=== PATIENT | male | born 1935 | race Caucasian/White ===

== ENCOUNTER 2017-08-09 13:12 | Inpatient (IN) | payer MEDICARE ==
[2017-08-09] MEDS ORDERED: ACETAMINOPHEN 325 MG TABLET PO ONE (13:15)
--- NOTE | 2017-08-09 13:49 | RADIOLOGY REPORT (SQ) ---
EXAM DESCRIPTION: HIP LEFT AP/LATERAL COMPLETED DATE/TIME: 08/09/2017 1:36 pm REASON FOR STUDY: fall COMPARISON: None. NUMBER OF VIEWS: Two views. TECHNIQUE: AP pelvis and additional frog-leg view of the left hip. LIMITATIONS: None. FINDINGS: MINERALIZATION: Normal. LEFT HIP: There is an intertrochanteric fracture of the proximal left femur. RIGHT HIP: No fracture or dislocation. No worrisome bone lesions. PUBIS AND ISCHIUM: No fracture. PELVIS: No fracture. SACRUM: No fracture or dislocation. No worrisome bone lesions. LOWER LUMBAR SPINE: No fracture or dislocation. No worrisome bone lesions. No significant disc disea se. SOFT TISSUES: No findings. OTHER: No other significant finding. IMPRESSION: Intertrochanteric fracture of the proximal left femur. No other evidence for fracture i s seen. TECHNICAL DOCUMENTATION: JOB ID: [id number] [employer]- All Rights Reserved Reading location - IP/workstation name: [email or web address]
--- NOTE | 2017-08-09 14:41 | ER Document Report ---
ED Hip Pain/Injury - General Chief Complaint: Hip Injury Stated Complaint: FALL/LEFT HIP PAIN Time Seen by Provider: 08/09/17 14:25 Notes: Patient slipped and fell and injured his left hip today. He was wearing socks but no shoes and was not using his walker that he has to assist with walking and he slipped on a linoleum floor. Also hit his head, but no loss of consciousness or neurologic deficits. Denies any neck pain. No chest or rib pain. No shortness of breath. No abdominal pain. Denies nausea or vomiting. Denies diarrhea. Denies any recent illness or fever or chills. TRAVEL OUTSIDE OF THE [place] IN LAST 30 DAYS: No - Related Data Allergies/Adverse Reactions: No Known Allergies Allergy (Verified 10/01/14 00:36) Past Medical History - Social History Smoking Status: Unknown if Ever Smoked Chew tobacco use (# tins/day): No Frequency of alcohol use: None Drug Abuse: None Family History: Reviewed & Not Pertinent, CAD, DM, Hypertension, Malignancy Patient has suicidal ideation: No Patient has homicidal ideation: No - Past Medical History Cardiac Medical History: Reports: Hx Atrial Fibrillation - heart irregularity but not sure if actual A. fib, Hx Coronary Artery Disease, Hx Hypercholesterolemia, Hx Hypertension Denies: Hx Heart Attack Pulmonary Medical History: Denies: Hx Asthma Neurological Medical History: Reports: Hx Cerebrovascular Accident - 20 YEARS AGO,[employer]OT[employer]. Denies: Hx Seizures Endocrine Medical History: Reports: Hx Diabetes Mellitus Type 1, Hx Diabetes Mellitus Type 2 Renal/ Medical History: Reports: Hx Benign Prostatic Hyperplasia, Hx Renal Insufficiency Musculoskeltal Medical History: Reports Hx Arthritis Past Surgical History: Reports: Hx Carotid Endarterectomy, Hx Tonsillectomy, Hx Vascular Surgery - carotid artery. Denies: Hx Open Heart Surgery, Hx Pacemaker - Immunizations Immunizations up to date: Yes Hx Diphtheria, Pertussis, Tetanus Vaccination: Yes Hx Pneumococcal Vaccination: 05/31/12 Review of Systems - Review of Systems Notes: REVIEW OF SYSTEMS: CONSTITUTIONAL : Denies fever. EENT: Denies eye, ear, nose or mouth or throat pain or other symptoms. CARDIOVASCULAR: Denies chest pain. RESPIRATORY: Denies cough, chest congestion, or shortness of breath. GASTROINTESTINAL: Denies abdominal pain or nausea, vomiting, or diarrhea. GENITOURINARY: Denies difficulty or painful urinating, urinary frequency, blood in urine. MUSCULOSKELETAL: Denies back or neck pain. Pain in left hip. Declines pain medications. SKIN: Denies rash or skin lesions. NEUROLOGICAL: Denies LOC or altered mental status. Denies headache. Denies sensory loss or motor deficits. ALL OTHER SYSTEMS REVIEWED AND NEGATIVE. Physical Exam - Vital signs Vitals: Temp Pulse Resp BP Pulse Ox 97.7 F 83 20 178/98 H 96 08/09/17 13:49 08/09/17 13:49 08/09/17 13:49 08/09/17 13:49 08/09/17 13:49 Interpretation: Hypertensive - Mild - Notes Notes: PHYSICAL EXAMINATION: GENERAL: Well-appearing, in no acute distress. Vital signs normal except for slight elevation of blood pressure. HEAD: Atraumatic, normocephalic. No hematomas noted. EYES: Pupils equal round and reactive to light, extraocular movements intact. ENT: oropharynx clear without exudates. Moist mucous membranes. NECK: Normal range of motion, supple. LUNGS: Breath sounds clear and equal bilaterally. HEART: Regular rate and rhythm without murmurs. ABDOMEN: Soft, nontender. No guarding or rebound. No masses. BACK: No tenderness throughout entire back. EXTREMITIES: Pain in left hip and does not tolerate movement of that area. NEUROLOGICAL: Normal speech, normal gait. Normal sensory, motor, and reflex exams. Awake, alert, and oriented x3. Cranial nerves normal. PSYCH: Normal mood, normal affect. SKIN: Warm, dry, no rashes. Course - Re-evaluation Re-evalutation: 08/09/17 15:57 X-ray shows an intertrochanteric fracture of the left hip. I have contacted hospitalist testing consultant who will admit the patient. I have contacted the orthopedist testing consultant, Dr. Terrell, who will be consulting on the patient. EKG with normal sinus rhythm with occasional unifocal PVCs, no acute changes. - Vital Signs Vital signs: Temp Pulse Resp BP Pulse Ox 97.7 F 83 20 167/77 H 95 08/09/17 13:49 08/09/17 13:49 08/09/17 15:01 08/09/17 15:01 08/09/17 15:01 - Laboratory Result Diagrams: 08/09/17 14:05 08/09/17 14:05 Laboratory results interpreted by me: 03/12/18 03/12/18 14:05 14:05 WBC 17.5 H Seg Neuts % (Manual) 91 H Lymphocytes % (Manual) 4 L Abs Neuts (Manual) 15.9 H Carbon Dioxide 31 H BUN 25 H Glucose 185 H Direct Bilirubin 0.5 H - Diagnostic Test Radiology results interpreted by me: 08/09/17 15:58 Chest x-ray appears normal except for some cardiac enlargement. X-ray of the hip reveals an intertrochanteric fracture of the left hip. - EKG Interpretation by Ri EKG shows normal: Sinus rhythm Rate: Normal Rhythm: NSR, PVC's - Unifocal Additional EKG results interpreted by vt: 08/09/17 15:59 EKG without acute changes. Discharge - Discharge Clinical Impression: Intertrochanteric fracture of left hip Condition: Stable Disposition: ADMITTED INPATIENT Admitting Provider: Hospitalist Unit Admitted: Telemetry
[2017-08-09 14:49] LABS: ALANINE AMINOTRANSFERASE 27 U/L (21-72); ALBUMIN 4.1 g/dL (3.5-5.0); ALKALINE PHOSPHATASE 74 U/L (38-126); ANION GAP 9 (5-19); ASPARTATE AMINO TRANSFERASE 18 U/L (17-59); BILIRUBIN,DIRECT 0.5 mg/dL (0.0-0.4); BILIRUBIN,TOTAL 0.6 mg/dL (0.2-1.3); BLOOD UREA NITROGEN 25 mg/dL (7-20); CALCIUM 9.4 mg/dL (8.4-10.2); CARBON DIOXIDE 31 mmol/L (22-30); CHLORIDE 102 mmol/L (98-107); GLUCOSE 185 mg/dL (75-110); POTASSIUM 4.5 mmol/L (3.6-5.0); SODIUM 142.3 mmol/L (137-145); TOTAL PROTEIN 6.4 g/dL (6.3-8.2)
[2017-08-09 14:58] LABS: HEMATOCRIT 41.5 % (37.9-51.0); HEMOGLOBIN 14.1 g/dL (13.5-17.0); MEAN CORPUSCULAR HEMOGLOBIN 30.7 pg (27.0-33.4); MEAN CORPUSCULAR HGB CONC 33.9 g/dL (32.0-36.0); MEAN CORPUSCULAR VOLUME 91 fl (80-97); PLATELET COUNT 248 10^3/uL (150-450); RED BLOOD COUNT 4.58 10^6/uL (4.35-5.55); RED CELL DISTRIBUTION WIDTH 13.5 % (11.5-14.0); WHITE BLOOD COUNT 17.5 10^3/uL (4.0-10.5)
[2017-08-09 15:18] LABS: ABSOLUTE LYMPHOCYTES# (MANUAL) 0.7 10^3/uL (0.5-4.7); ABSOLUTE MONOCYTES # (MANUAL) 0.9 10^3/uL (0.1-1.4); ABSOLUTE NEUTROPHILS# (MANUAL) 15.9 10^3/uL (1.7-8.2); BASOPHILS % (MANUAL) 0 % (0-2); EOSINOPHILS % (MANUAL) 0 % (0-6); LYMPHOCYTES % (MANUAL) 4 % (13-45); MONOCYTES % (MANUAL) 5 % (3-13); SEGMENTED NEUTROPHILS % (MAN) 91 % (42-78); TOTAL CELLS COUNTED 100
[2017-08-09 15:19] LABS: PLATELET COMMENT ADEQUATE; TOXIC GRANULATION SLIGHT
--- NOTE | 2017-08-09 15:57 | RADIOLOGY REPORT (SQ) ---
EXAM DESCRIPTION: SHOULDER LEFT 2 OR MORE VIEWS COMPLETED DATE/TIME: 08/09/2017 3:48 pm REASON FOR STUDY: Fell on left shoulder, now painful COMPARISON: None. NUMBER OF VIEWS: Three views. TECHNIQUE: Internal rotation, external rotation, and Y view images acquired of the left shoulder. LIMITATIONS: None. FINDINGS: MINERALIZATION: Normal. BONES: No acute fracture or dislocation. No worrisome bone lesions. JOINTS: No dislocation. VISUALIZED LUNGS AND RIBS: No pneumothorax. No rib fracture. SOFT TISSUES: No radiopaque foreign body. OTHER: No other significant finding. IMPRESSION: NEGATIVE STUDY OF THE LEFT SHOULDER. NO RADIOGRAPHIC EVIDENCE OF ACUTE INJURY. TECHNICAL DOCUMENTATION: JOB ID: [id number] [employer]- All Rights Reserved Reading location - IP/workstation name: [email or web address]
--- NOTE | 2017-08-09 15:59 | RADIOLOGY REPORT (SQ) ---
EXAM DESCRIPTION: CHEST SINGLE VIEW COMPLETED DATE/TIME: 08/09/2017 3:48 pm REASON FOR STUDY: Fractured hip, fall COMPARISON: None. EXAM PARAMETERS: NUMBER OF VIEWS: One view. TECHNIQUE: Single frontal radiographic view of the chest acquired. RADIATION DOSE: NA LIMITATIONS: None. FINDINGS: LUNGS AND PLEURA: No opacities, masses or pneumothorax. No pleural effusion. MEDIASTINUM AND HILAR STRUCTURES: No masses. Contour normal. HEART AND VASCULAR STRUCTURES: Heart normal in size. Normal vasculature. BONES: No acute findings. HARDWARE: None in the chest. OTHER: No other significant finding. IMPRESSION: NO ACUTE RADIOGRAPHIC FINDING IN THE CHEST. TECHNICAL DOCUMENTATION: JOB ID: [id number] [employer]- All Rights Reserved Reading location - IP/workstation name: [email or web address]
[2017-08-09 16:06] LABS: APPEARANCE,URINE CLOUDY; BILIRUBIN,URINE NEGATIVE (NEGATIVE); COLOR,URINE YELLOW; GLUCOSE, URINE NEGATIVE (NEGATIVE); KETONES,URINE NEGATIVE (NEGATIVE); LEUKOCYTE ESTERASE,URINE NEGATIVE (NEGATIVE); NITRITE,URINE NEGATIVE (NEGATIVE); PROTEIN,URINE 100 mg/dL (NEGATIVE); URINE SPECIFIC GRAVITY 1.018
[2017-08-09] MEDS ORDERED: FENTANYL CITRATE INJ/PF 100 MCG/2 ML AMPUL IV PRN (18:25)
[2017-08-09] MEDS ORDERED: DEXTROSE 40% GEL 15 GM TUBE PO PRN ×2 (18:27)
[2017-08-09] MEDS ORDERED: DEXTROSE 50%-WATER 25 GM/50 ML DISP.SYRIN IV PRN ×2 (18:27)
[2017-08-09] MEDS ORDERED: INSULIN LISPRO 100 UNIT/ML 3 ML VIAL SUBCUT PRN (18:27)
[2017-08-09] MEDS ORDERED: GLUCAGON,HUMAN RECOMB 1 MG INJ IM PRN (18:27)
--- NOTE | 2017-08-09 19:03 | EKG REPORT ---
SEVERITY:- ABNORMAL ECG - SINUS RHYTHM MULTIPLE VENTRICULAR PREMATURE COMPLEXES NONSPECIFIC INTRAVENTRICULAR CONDUCTION DELAY : Confirmed by: Darrell Tillman MD 09-Aug-2017 19:01:22
[2017-08-09] MEDS ORDERED: INSULIN GLARGINE,HUM.REC.ANLOG 1,000 UNIT/10 ML UNIT SUBCUT SCH (22:00)
[2017-08-09] MEDS: FAMOTIDINE 20 MG TABLET PO SCH (22:08)
[2017-08-09] MEDS: SIMVASTATIN 10 MG TABLET PO SCH (22:08)
--- NOTE | 2017-08-09 23:13 | PDOC H&P ---
History of Present Illness Admission Date/PCP: 08/09/17 16:12 DONIS STINSON MD Patient complains of: Left hip pain left hip pain History of Present Illness: This is an 82-year-old man who has hypertension coronary disease diabetes and a history of A. fib who was doing well and overall in good shape until he fell in his home today. He slipped on the wood floor. He states he did not have loss of consciousness, head trauma. He states that his fall was not preceded by weakness palpitations chest pain. He remembers all of the events. He had severe left-sided hip pain after the fall and 4 hours refused to let his son-in- law bring him into the ER. Finally the pain was so severe he allowed his son to bring him into the ED. He is found to have a left hip fracture. Past Medical History Cardiac Medical History: Reports: Atrial Fibrillation - heart irregularity but not sure if actual A. fib, Coronary Artery Disease, Hyperlipidema, Hypertension Denies: Myocardial Infarction Pulmonary Medical History: Denies: Asthma, Chronic Obstructive Pulmonary Disease (COPD) Neurological Medical History: Denies: Seizures Endocrine Medical History: Reports: Diabetes Mellitus Type 1, Diabetes Mellitus Type 2 Malignancy Medical History: Denies: None GI Medical History: Denies: Hepatitis, Hiatal Hernia Musculoskeltal Medical History: Reports: Arthritis Psychiatric Medical History: Denies: Alcohol Dependency, Dementia, General Anxiety Disorder Hematology: Denies: Anemia Past Surgical History Past Surgical History: Reports: Carotid Endarterectomy, Tonsillectomy, Vascular Surgery - carotid artery Denies: Pacemaker Social History Information Source: Patient, Relative Lives with: Family Smoking Status: Never Smoker Frequency of Alcohol Use: None Hx Recreational Drug Use: No Drugs: None Hx Prescription Drug Abuse: No Past Social History Note: 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 Moved to the [facility] in the 1949s. - Advance Directive Resuscitation Status: Full Code Family History Family History: CAD, DM, Hypertension, Malignancy Parental Family History Reviewed: Yes - Father with unknown type of cancer , mother with Alzheimer's Children Family History Reviewed: Yes - His children are all healthy Sibling(s) Family History Reviewed.: Yes - One brother has Alzheimer's disease, another brother with stroke, another brother lives in [facility] and they do not know about his health, his sister with congestive heart failure Medication/Allergy Home Medications: Alfuzosin HCl [Alfuzosin HCl ER] 10 mg PO DAILY 08/09/17 Aspirin [Ecotrin 81 mg EC Tablet] 81 mg PO DAILY 08/09/17 Clopidogrel Bisulfate [Plavix 75 mg Tablet] 75 mg PO DAILY 08/09/17 Cyanocobalamin (Vitamin B-12) [Vitamin B-12 1000 mcg Tablet] 1,000 mcg PO DAILY 08/09/17 Finasteride [Proscar 5 mg Tablet] 5 mg PO DAILY 08/09/17 Furosemide [Lasix 20 mg Tablet] 20 mg PO DAILY 08/09/17 Insulin Glargine,Hum.rec.anlog [Lantus Insulin 100 Unit/1 ml 10 ml] 10 units SQ QHS 08/09/17 Simvastatin [Zocor 20 mg Tablet] 20 mg PO QHS 08/09/17 Sotalol HCl [Sotalol] 80 mg PO BID 08/09/17 Allergies/Adverse Reactions: No Known Allergies Allergy (Verified 10/01/14 00:36) Review of Systems Constitutional: ABSENT: anorexia, chills, fever(s) Physical Exam Vital Signs: Temp Pulse Resp BP Pulse Ox 99.1 F 83 15 115/65 98 08/09/17 20:00 08/09/17 20:00 08/09/17 20:00 08/09/17 20:00 08/09/17 20:00 General appearance: PRESENT: no acute distress, obese Head exam: PRESENT: atraumatic, normocephalic Eye exam: PRESENT: conjunctiva pink, EOMI Mouth exam: PRESENT: moist, neck supple, tongue midline Neck exam: ABSENT: lymphadenopathy, tenderness Respiratory exam: PRESENT: clear to auscultation krissy, unlabored. ABSENT: rales , rhonchi, wheezes Cardiovascular exam: PRESENT: irregular rhythm. ABSENT: bradycardia, systolic murmur, tachycardia Pulses: PRESENT: normal radial pulses Vascular exam: PRESENT: normal capillary refill GI/Abdominal exam: PRESENT: normal bowel sounds, soft. ABSENT: distended, tenderness Extremities exam: PRESENT: other - Left leg is externally rotated Musculoskeletal exam: PRESENT: deformity - Left leg as above Skin exam: PRESENT: intact, other - No ecchymoses over the left hip Results Impressions: Hip X-Ray 08/09/17 13:20 IMPRESSION: Intertrochanteric fracture of the proximal left femur. No other evidence for fracture is seen. Shoulder X-Ray 08/09/17 14:35 IMPRESSION: NEGATIVE STUDY OF THE LEFT SHOULDER. NO RADIOGRAPHIC EVIDENCE OF ACUTE INJURY. Chest X-Ray 08/09/17 14:37 IMPRESSION: NO ACUTE RADIOGRAPHIC FINDING IN THE CHEST. Assessment & Plan - Diagnosis (1) Intertrochanteric fracture of left hip Is this a current diagnosis for this admission?: Yes Plan: Patient is hemodynamically stable. He is having acute pain. He has fentanyl 12.5 mg IV every 6 hours available. He received 1 dose and he told me that it was very effective for his pain. He also has Tylenol for less severe pain. Do not have IV morphine or Dilaudid available in this hospital. Orthopedic surgery has been consulted. (2) History of atrial fibrillation Is this a current diagnosis for this admission?: Yes Plan: She is on sotalol. He has multiple PVCs but does not appear to be in A. fib. He is not anticoagulated. (3) BPH (benign prostatic hyperplasia) Is this a current diagnosis for this admission?: Yes Plan: Stable asymptomatic. Continue his BPH medications. (4) Type 2 diabetes mellitus Is this a current diagnosis for this admission?: Yes Plan: Patient is eating a little bit but not much. He will be n.p.o. at midnight. Continue sliding scale lispro. (5) H/O carotid endarterectomy Is this a current diagnosis for this admission?: Yes Plan: Several months ago patient had carotid endarterectomy, we will continue his Plavix. (6) Coronary artery disease Is this a current diagnosis for this admission?: Yes Plan: Blood pressure is controlled. We will continue his home medications. Anesthesiology has requested a cardiology consult for preoperative clearance. Cardiology consult has been placed. Patient is on telemetry. No chest pain or other signs or symptoms suggestive of acute coronary syndrome currently. - Time Time Spent: 50 to 70 Minutes - Inpatient Certification I certify that my determination is in accordance with my understanding of Medicare's requirements for reasonable and necessary INPATIENT services [42 CFR 412.3e].: Yes Medical Necessity: Need Close Monitoring Due to Risk of Patient Decompensation, Need for Surgery, Risk of Complication if Not Cared For in Hospital
[2017-08-10] MEDS ORDERED: NORMAL SALINE 1000 ML 1,000 ML IV PRN (00:26)
[2017-08-10] MEDS: ACETAMINOPHEN 325 MG TABLET PO PRN (05:12)
[2017-08-10] MEDS: TRAMADOL HCL 50 MG TABLET PO PRN ×2 (05:12→18:26)
[2017-08-10 05:33] LABS: HEMATOCRIT 33.6 % (37.9-51.0); MEAN CORPUSCULAR HEMOGLOBIN 30.9 pg (27.0-33.4); MEAN CORPUSCULAR HGB CONC 34.1 g/dL (32.0-36.0); MEAN CORPUSCULAR VOLUME 91 fl (80-97); PLATELET COUNT 206 10^3/uL (150-450); RED BLOOD COUNT 3.71 10^6/uL (4.35-5.55); RED CELL DISTRIBUTION WIDTH 13.5 % (11.5-14.0); WHITE BLOOD COUNT 9.2 10^3/uL (4.0-10.5)
[2017-08-10 05:34] LABS: APPEARANCE,URINE SLIGHTLY-CLOUDY; BILIRUBIN,URINE NEGATIVE (NEGATIVE); COLOR,URINE YELLOW; GLUCOSE, URINE NEGATIVE (NEGATIVE); KETONES,URINE NEGATIVE (NEGATIVE); LEUKOCYTE ESTERASE,URINE NEGATIVE (NEGATIVE); NITRITE,URINE NEGATIVE (NEGATIVE); PROTEIN,URINE 100 mg/dL (NEGATIVE); URINE SPECIFIC GRAVITY 1.024
[2017-08-10 05:37] LABS: ANION GAP 11 (5-19); BLOOD UREA NITROGEN 28 mg/dL (7-20); CALCIUM 8.9 mg/dL (8.4-10.2); CARBON DIOXIDE 25 mmol/L (22-30); CHLORIDE 104 mmol/L (98-107); GLUCOSE 138 mg/dL (75-110); POTASSIUM 3.8 mmol/L (3.6-5.0); SODIUM 140.2 mmol/L (137-145)
[2017-08-10 06:18] LABS: HEMOGLOBIN 11.5 g/dL (13.5-17.0)
[2017-08-10] MEDS: FINASTERIDE 5 MG TABLET PO SCH (09:22)
[2017-08-10] MEDS: FAMOTIDINE 20 MG TABLET PO SCH ×2 (09:23→22:44)
[2017-08-10] MEDS: TAMSULOSIN HCL 0.4 MG CAP.SR.24H PO SCH (09:23)
[2017-08-10] MEDS: CYANOCOBALAMIN (VITAMIN B-12) 1,000 MCG TABLET PO SCH (09:23)
[2017-08-10] MEDS: FUROSEMIDE 20 MG TABLET PO SCH (09:23)
[2017-08-10] MEDS: SOTALOL HCL 80 MG TABLET PO SCH ×2 (09:24→18:26)
[2017-08-10] MEDS: ASPIRIN 81 MG TABLET, ENT COATED PO SCH (09:28)
[2017-08-10] MEDS: CLOPIDOGREL BISULFATE 75 MG TABLET PO SCH (09:28)
[2017-08-10] MEDS ORDERED: (PENDING PHARMACY ID) (Alfuzosin Hcl [Alfuzosin Hcl Er] 10 MG) PO SCH (10:00)
--- NOTE | 2017-08-10 10:42 | PDOC PROGRESS REPORT ---
Subjective Progress Note for:: 08/10/17 Subjective:: Patient admitted with the hip fracture. He is seen this morning awaiting surgery. There are no new complaints. Echocardiogram is currently pending. Reason For Visit: PNEUMONIA Physical Exam Vital Signs: Temp Pulse Resp BP Pulse Ox 97.9 F 65 18 112/49 L 95 08/10/17 07:18 08/10/17 07:18 08/10/17 07:18 08/10/17 07:18 08/10/17 07:18 Intake & Output 08/09/17 08/10/17 08/11/17 06:59 06:59 06:59 Intake Total 450 Balance 450 Weight 92.1 kg General appearance: PRESENT: no acute distress Head exam: PRESENT: atraumatic Ear exam: PRESENT: normal external ear exam Respiratory exam: PRESENT: clear to auscultation krissy. ABSENT: rales, rhonchi, wheezes Cardiovascular exam: PRESENT: irregular rhythm, +S1, +S2. ABSENT: diastolic murmur, rubs, systolic murmur GI/Abdominal exam: PRESENT: normal bowel sounds, soft. ABSENT: distended, guarding, mass, organolmegaly, rebound, tenderness Rectal exam: PRESENT: deferred Musculoskeletal exam: PRESENT: other - L hip fracture Neurological exam: PRESENT: alert, awake, oriented to person, oriented to place , oriented to time Results Laboratory Results: 08/10/17 04:54 08/10/17 04:54 08/10/17 08/10/17 08/10/17 04:45 04:54 04:54 WBC 9.2 RBC 3.71 L Hgb 11.5 L D Hct 33.6 L MCV 91 MCH 30.9 MCHC 34.1 RDW 13.5 Plt Count 206 Sodium 140.2 Potassium 3.8 Chloride 104 Carbon Dioxide 25 Anion Gap 11 BUN 28 H Creatinine 0.95 Est GFR ( Amer) > 60 Est GFR (Non-Af Amer) > 60 Glucose 138 H Calcium 8.9 Urine Color YELLOW Urine Appearance SLIGHTLY-CLOUDY Urine pH 6.0 Ur Specific [place] 1.024 Urine Protein 100 H Urine Glucose (UA) NEGATIVE Urine Ketones NEGATIVE Urine Blood NEGATIVE Urine Nitrite NEGATIVE Ur Leukocyte Esterase NEGATIVE Urine WBC (Auto) 1 Urine RBC (Auto) 4 Impressions: Hip X-Ray 08/09/17 13:20 IMPRESSION: Intertrochanteric fracture of the proximal left femur. No other evidence for fracture is seen. Shoulder X-Ray 08/09/17 14:35 IMPRESSION: NEGATIVE STUDY OF THE LEFT SHOULDER. NO RADIOGRAPHIC EVIDENCE OF ACUTE INJURY. Chest X-Ray 08/09/17 14:37 IMPRESSION: NO ACUTE RADIOGRAPHIC FINDING IN THE CHEST. Assessment & Plan - Time Time Spent with patient: 15-24 minutes Medications reviewed and adjusted accordingly: Yes Anticipated discharge: Acute Rehab Within: within 72 hours - Inpatient Certification Medical Necessity: Need for Surgery - Hip Surgery - Plan Summary Plan Summary: 1. Intertrochanteric fracture of left hip currently is scheduled for surgery this afternoon. Will follow up on 2-dimensional echocardiogram done preoperatively. 2.History of atrial fibrillation currently on sotalol. He is not anticoagulated possibly due to being a fall risk. 3. Type 2 diabetes mellitus currently on sliding scale insulin 4. History of carotid endarterectomy-restart Plavix postoperatively 5. Benign prostatic hyperplasia asymptomatic 6. Stable coronary artery disease patient has been evaluated by cardiology
--- NOTE | 2017-08-10 11:22 | PDOC CONSULTATION ---
Consultation Consult Date: 08/09/17 Attending physician:: MENDOZA DESAI Consult reason:: Preop clearance History of Present Illness Admission Date/PCP: 08/09/17 16:12 DONIS STINSON MD Patient complains of: Hip fracture History of Present Illness: CHON LOWE is a 82 year old male who has hypertension, coronary artery disease, diabetes and a history of A. fib who was doing well and overall in good shape until he fell in his home today. He slipped on the wood floor. He states he did not have loss of consciousness, head trauma. He states that his fall was not preceded by weakness palpitations chest pain. He remembers all of the events. He had severe left-sided hip pain after the fall and 4 hours refused to let his son-in-law bring him into the ER. Finally the pain was so severe he allowed his son to bring him into the ED. He is found to have a left hip fracture. Patient denied any recent chest pain. Patient denied any sustained palpitations , syncope, near syncope. Patient claims to be ambulatory and being able to take care of himself. Past Medical History Cardiac Medical History: Reports: Atrial Fibrillation - heart irregularity but not sure if actual A. fib, Coronary Artery Disease, Hyperlipidema, Hypertension Denies: Myocardial Infarction Pulmonary Medical History: Denies: Asthma Neurological Medical History: Denies: Seizures Endocrine Medical History: Reports: Diabetes Mellitus Type 1, Diabetes Mellitus Type 2 GI Medical History: Denies: Hepatitis, Hiatal Hernia Musculoskeltal Medical History: Reports: Arthritis Hematology: Denies: Anemia, Sickle Cell Disease Past Surgical History Past Surgical History: Reports: Carotid Endarterectomy, Tonsillectomy, Vascular Surgery - carotid artery Denies: Pacemaker Social History Information Source: Patient Smoking Status: Unknown if Ever Smoked Frequency of Alcohol Use: None Hx Recreational Drug Use: No Drugs: None Hx Prescription Drug Abuse: No - Advance Directive Resuscitation Status: Full Code Surrogate healthcare decision maker:: Patient's daughter is the surrogate decision-maker Family History Family History: Reviewed & Not Pertinent, CAD, DM, Hypertension, Malignancy Parental Family History Reviewed: Yes Children Family History Reviewed: Yes Sibling(s) Family History Reviewed.: Yes Medication/Allergy Home Medications: Alfuzosin HCl [Alfuzosin HCl ER] 10 mg PO DAILY 08/09/17 Aspirin [Ecotrin 81 mg EC Tablet] 81 mg PO DAILY 08/09/17 Clopidogrel Bisulfate [Plavix 75 mg Tablet] 75 mg PO DAILY 08/09/17 Cyanocobalamin (Vitamin B-12) [Vitamin B-12 1000 mcg Tablet] 1,000 mcg PO DAILY 08/09/17 Finasteride [Proscar 5 mg Tablet] 5 mg PO DAILY 08/09/17 Furosemide [Lasix 20 mg Tablet] 20 mg PO DAILY 08/09/17 Insulin Glargine,Hum.rec.anlog [Lantus Insulin 100 Unit/1 ml 10 ml] 10 units SQ QHS 08/09/17 Simvastatin [Zocor 20 mg Tablet] 20 mg PO QHS 08/09/17 Sotalol HCl [Sotalol] 80 mg PO BID 08/09/17 Allergies/Adverse Reactions: No Known Allergies Allergy (Verified 10/01/14 00:36) Review of Systems Review of Systems: Please see history of present illness and past medical history as wall. Constitutional: No fever or chills reported. Head : No recent chronic headaches, recent head injury. Eyes: No recent eye pain, diplopia, redness, discharge, acute visual changes. Ears: No recent chronic ear pain, acute hearing loss, ear discharge. Oral cavity: No recent ulcerations, bleeding, oral cavity discomfort. Neck: No recent acute neck pain reported. Hematologic: No recent easy bruising or bleeding or hematologic malignancy reported. Lymphatic: No recent lymphatic malignancy, chronic lymphadenopathy reported yet Cardiovascular system review: See history of present illness. Respiratory system review: No recent chronic cough, hemoptysis, blood clots in the lungs reported. Mild Shortness of breath on exertion Gastrointestinal system review: Negative for any recent acute or chronic abdominal pain, hematemesis, melena, recent change in bowel habits. Genitourinary system review: No recent acute or chronic hematuria, flank pain, UTI etc. reported. Skin system review: Negative for any recent abnormal bruising, no rash, no pruritus reported. Neurologic: No prior history of strokes, mini strokes, seizure disorder. Psychologic: No history of major psychosis or major depression reported. Musculoskeletal: Minor aches and pains reported. No acute joint swelling reported. Endocrine: No recent polyuria, polydipsia, recent heat or cold intolerance. Physical Exam Vital Signs: Temp Pulse Resp BP Pulse Ox 99.1 F 83 15 115/65 98 08/09/17 20:00 03/12/18 20:00 08/09/17 20:00 08/09/17 20:00 08/09/17 20:00 Exam: GENERAL: well-nourished and in no acute distress. Alert and oriented x3 HEAD: Atraumatic, normocephalic. EYES: Pupils equal round and reactive to light, extraocular movements intact, sclera anicteric, conjunctiva are normal. ENT: TMs normal, nares patent, oropharynx clear without exudates. Moist mucous membranes. No oral ulcerations or bleeding gums noted NECK: supple without lymphadenopathy. Trachea is central. No cervical or axillary lymphadenopathy noted. Carotids are 2+, JVD WNL LUNGS: Respiration seems nonlabored, no significant accessory muscle action noted. Breath sounds clear to auscultation bilaterally and equal noted. No wheezes rales or rhonchi noted. No significant dullness noted on percussion. CHEST: Palpation of the chest wall shows no significant chest wall tenderness. No other significant abnormalities noted. HEART: [place] PRECISION FILER HAND, No PSH, 1/6 ZOEY aortic area, 1/6 [place] systolic murmur mitral area, no rubs, no gallops. ABDOMEN: Soft, no significant tenderness appreciated, normoactive bowel sounds. No guarding, no rebound. No rigidity noted . No masses appreciated. EXTREMITIES: Pedal pulses are 1-2+, no calf tenderness noted. No clubbing or cyanosis.trace to 1+ pedal edema noted NEUROLOGICAL: Focused neurological exam showed no significant neurologic deficit. Normal speech, no focal weakness appreciated. Left lower extremity not examined for strength PSYCH: Normal mood, normal affect. Judgment and insight within normal limits. SKIN: No significant ecchymosis, skin is noted to be warm. MUSCULOSKELETAL EXAM: No significant acute joint swelling noted. Findings consistent with left hip fracture noted. Results EKG Comments: Sinus rhythm with VPCs. No acute ST-T wave changes noted. Impressions: Hip X-Ray 08/09/17 13:20 IMPRESSION: Intertrochanteric fracture of the proximal left femur. No other evidence for fracture is seen. Shoulder X-Ray 08/09/17 14:35 IMPRESSION: NEGATIVE STUDY OF THE LEFT SHOULDER. NO RADIOGRAPHIC EVIDENCE OF ACUTE INJURY. Chest X-Ray 08/09/17 14:37 IMPRESSION: NO ACUTE RADIOGRAPHIC FINDING IN THE CHEST. Assessment & Plan - Diagnosis (1) Preoperative cardiovascular examination Is this a current diagnosis for this admission?: Yes (2) Hyperlipidemia Qualifiers: Hyperlipidemia type: unspecified Qualified Code(s): E78.5 - Hyperlipidemia , unspecified Is this a current diagnosis for this admission?: Yes (3) Hypertension Qualifiers: Hypertension type: essential hypertension Qualified Code(s): I10 - Essential (primary) hypertension Is this a current diagnosis for this admission?: Yes (4) Coronary artery disease Qualifiers: Coronary Disease-Associated Artery/Lesion type: [place] artery [place] vs. 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 This is without any chest pain, acute CHF or any significant cardiac dysrhythmia. Patient therefore cleared for surgery with average to slightly above average risk for patient age. A 2D echo was ordered but has not yet been performed. This would help in managing any postop complication should this happen. Hypertension: Recommend liberal controlled in this elderly gentleman. Avoid any hypotension or severe hypertension. Hyperlipidemia: Continue statin therapy. Coronary artery disease: Currently symptomatically stable. Resume antiplatelet therapy, statins and other medication as soon as feasible from surgical standpoint. History of carotid endarterectomy: No recent symptoms suggestive of TIA or stroke. Continue antiplatelet and statin therapy. History of atrial fibrillation: Currently patient in sinus rhythm. Continue cardiac monitoring. Diabetes: Currently stable. Avoid any severe hypoglycemia or hyperglycemia. Patient will benefit from DVT prophylaxis, pulmonary toilet, good postop pain control. - Time Time Spent: 30 to 50 Minutes - CODE STATUS was discussed, patient remains full code. Surrogate decision-maker patient's children. Multiple medical problems were addressed. More than 50% of the time spent coordinating care, discussing management plans with involved caregivers. Management plans discussed with involved personnels. Medical decision making was of moderate to high complexity , patient's has multiple comorbidities. Medications reviewed and adjusted accordingly: Yes
--- NOTE | 2017-08-10 12:25 | XCELERA REPORT ---
[address] [address] Transthoracic Echocardiogram Report Name: CHON LOWE Age: 82 yrs Gender: Male : 1935 Patient Status: Inpatient Patient Location: [address] [place] [address] Study Date: 08/10/2017 08:58 AM Height: 68 in Weight: 203 lb BSA: 2.1 m2 Procedure: A complete two-dimensional transthoracic echocardiogram was performed (2D, M-mode, spectral and color flow Doppler). The study was technically adequate with some images being suboptimal in quality. Reason For Study: Preop evaluation, heart murmur Ordering Physician: FIDELINA DICKINSON Performed By: Monse Wilson Interpretation Summary The left ventricular ejection fraction is normal. There is mild concentric left ventricular hypertrophy. Doppler measurements suggest pseudonormalized left ventricular relaxation, which is associated with grade II/IV or mild to moderate diastolic dysfunction The left ventricle is grossly normal size. Regional wall motion abnormalities cannot be excluded due to limited visualization. The right ventricular systolic function is normal. The right atrium is normal in size The left atrial size is normal. There is a trace amount of mitral regurgitation There is no mitral valve stenosis. No aortic regurgitation is present. There is no aortic valve stenosis There is a trace or physiologic amount of tricuspid regurgitation Tricuspid regurgitation jet envelope not well defined to measure RV systolic pressure accurately. The aortic root is not well visualized. The inferior vena cava appeared normal and decreased > 50% with respiration (RAP 5-10 mmHg) Minimal pericardial effusion. MMode/2D Measurements & Calculations RVDd: 3.6 cm LVIDd: 5.3 cmFS: 43.7 % Ao root diam: 3.7 cm IVSd: 1.2 cm LVIDs: 3.0 cmEDV(Teich): 133.1 ml LVPWd: 1.2 cmESV(Teich): 34.0 ml Ao root area: 10.7 cm2 EF(Teich): 74.5 % LA dimension: 3.6 cm LVOT diam: 2.3 cm LVOT area: 4.3 cm2 Doppler Measurements & Calculations MV E max олег: MV P1/2t max олег: Ao V2 max: LV V1 max P.0 cm/sec 78.0 cm/sec 173.8 cm/sec 6.1 mmHg MV A max олег: MV P1/2t: 79.4 msec Ao max PG: LV V1 max: 63.2 cm/sec MVA(P1/2t): 2.8 cm2 12.1 mmHg 123.4 cm/sec MV E/A: 1.2 MV dec slope: DILLAN(V,D): 3.1 cm2 287.7 cm/sec2 PA V2 max: TR max олег: 98.2 cm/sec 212.3 cm/sec PA max PG: TR max P.0 mmHg 3.9 mmHg Left Ventricle The left ventricle is grossly normal size. There is mild concentric left ventricular hypertrophy. The left ventricular ejection fraction is normal. Doppler measurements suggest pseudonormalized left ventricular relaxation, which is associated with grade II/IV or mild to moderate diastolic dysfunction. Regional wall motion abnormalities cannot be excluded due to limited visualization. Right Ventricle The right ventricle is grossly normal size. There is normal right ventricular wall thickness. The right ventricular systolic function is normal. Atria The right atrium is normal in size. The left atrial size is normal. Interarterial septum not well visualized and not well dopplered. Cannot comment on ASD/PFO presence. Mitral Valve The mitral valve is grossly normal. There is no mitral valve stenosis. There is a trace amount of mitral regurgitation. Aortic Valve The aortic valve is not well visualized secondary to technical limitations. There is no aortic valve stenosis. No aortic regurgitation is present. Tricuspid Valve The tricuspid valve is not well visualized, but is grossly normal. There is no tricuspid stenosis. There is a trace or physiologic amount of tricuspid regurgitation. Tricuspid regurgitation jet envelope not well defined to measure RV systolic pressure accurately. Pulmonic Valve The pulmonic valve is not well visualized. Great Vessels The aortic root is not well visualized. The inferior vena cava appeared normal and decreased > 50% with respiration (RAP 5-10 mmHg). Effusions Minimal pericardial effusion. : FIDELINA DICKINSON > Fidelina Dickinson
[2017-08-10] MEDS ORDERED: EPHEDRINE SULFATE INJ 50 MG/1 ML AMPULE ONE (13:33)
[2017-08-10] MEDS ORDERED: MIDAZOLAM 2 MG/2 ML INJ ONE (13:33)
[2017-08-10] MEDS ORDERED: FENTANYL CITRATE INJ/PF 100 MCG/2 ML AMPUL ONE (13:33)
[2017-08-10] MEDS ORDERED: PROPOFOL INJ 200 MG/20 ML VIAL IV ONE (13:33)
[2017-08-10] MEDS ORDERED: HYDROMORPHONE HCL INJ/PF 2 MG/ML AMPULE ONE (13:34)
[2017-08-10] MEDS ORDERED: BUPIVACAINE HCL/DEX-WATER/PF 15 MG/2 ML AMPULE ONE (13:38)
[2017-08-10] MEDS ORDERED: CEFAZOLIN INJ 1 GM VIAL ONE (13:41)
[2017-08-10] MEDS ORDERED: KETAMINE HCL INJ 500 MG/10 ML VIAL ONE (13:44)
--- NOTE | 2017-08-10 14:08 | PDOC CONSULTATION ---
Consultation Consult Date: 08/09/17 Consult reason:: Left hip fracture History of Present Illness Admission Date/PCP: 08/09/17 16:12 DONIS STINSON MD Patient complains of: Left hip pain and inability to weight-bear History of Present Illness: 82-year-old gentleman with multiple comorbidities status post mechanical fall onto his left hip. Was unable to weight-bear and had acute excruciating pain of the left hip. Patient was then brought by EMS to the hospital where he was diagnosed with a displaced left intertrochanteric hip fracture. She denies any other extremity injuries and any loss of consciousness. Complains of groin pain. 5 out of 5 pain with any attempt of motion of the left lower extremity. Past Medical History Cardiac Medical History: Reports: Atrial Fibrillation - heart irregularity but not sure if actual A. fib, Coronary Artery Disease, Hyperlipidema, Hypertension Denies: Myocardial Infarction Pulmonary Medical History: Denies: Asthma, Chronic Obstructive Pulmonary Disease (COPD) Neurological Medical History: Denies: Seizures Endocrine Medical History: Reports: Diabetes Mellitus Type 1, Diabetes Mellitus Type 2 Malignancy Medical History: Denies: None GI Medical History: Denies: Hepatitis, Hiatal Hernia Musculoskeltal Medical History: Reports: Arthritis Psychiatric Medical History: Denies: Alcohol Dependency, Dementia, General Anxiety Disorder Hematology: Denies: Anemia, Sickle Cell Disease Past Surgical History Past Surgical History: Reports: Carotid Endarterectomy, Tonsillectomy, Vascular Surgery - carotid artery Denies: Pacemaker Social History Lives with: Family Smoking Status: Unknown if Ever Smoked Frequency of Alcohol Use: None Hx Recreational Drug Use: No Drugs: None Hx Prescription Drug Abuse: No - Advance Directive Resuscitation Status: Full Code Family History Family History: Reviewed & Not Pertinent, CAD, DM, Hypertension, Malignancy Parental Family History Reviewed: No Children Family History Reviewed: No Sibling(s) Family History Reviewed.: No Medication/Allergy Home Medications: Alfuzosin HCl [Alfuzosin HCl ER] 10 mg PO DAILY 08/09/17 Aspirin [Ecotrin 81 mg EC Tablet] 81 mg PO DAILY 08/09/17 Clopidogrel Bisulfate [Plavix 75 mg Tablet] 75 mg PO DAILY 08/09/17 Cyanocobalamin (Vitamin B-12) [Vitamin B-12 1000 mcg Tablet] 1,000 mcg PO DAILY 08/09/17 Finasteride [Proscar 5 mg Tablet] 5 mg PO DAILY 08/09/17 Furosemide [Lasix 20 mg Tablet] 20 mg PO DAILY 08/09/17 Insulin Glargine,Hum.rec.anlog [Lantus Insulin 100 Unit/1 ml 10 ml] 10 units SQ QHS 08/09/17 Simvastatin [Zocor 20 mg Tablet] 20 mg PO QHS 08/09/17 Sotalol HCl [Sotalol] 80 mg PO BID 08/09/17 Allergies/Adverse Reactions: No Known Allergies Allergy (Verified 10/01/14 00:36) Review of Systems All systems: reviewed and no additional remarkable complaints except as stated Physical Exam Vital Signs: Temp Pulse Resp BP Pulse Ox 36.4 C 62 16 111/51 L 97 08/10/17 11:35 08/10/17 11:35 08/10/17 11:02 08/10/17 11:35 08/10/17 11:35 Intake & Output 08/09/17 08/10/17 08/11/17 06:59 06:59 06:59 Intake Total 450 Balance 450 Weight 92.1 kg General appearance: PRESENT: no acute distress, well-nourished Head exam: PRESENT: atraumatic, normocephalic Eye exam: PRESENT: EOMI, other - Symmetric pupils. ABSENT: nystagmus Ear exam: PRESENT: normal external ear exam Mouth exam: PRESENT: neck supple Respiratory exam: PRESENT: symmetrical, unlabored. ABSENT: accessory muscle use , tachypnea Pulses: PRESENT: +2 pedal pulses bilateral Vascular exam: PRESENT: normal capillary refill GI/Abdominal exam: PRESENT: soft. ABSENT: tenderness Neurological exam: PRESENT: alert, awake, oriented to person, oriented to place , oriented to time Psychiatric exam: PRESENT: normal mood Skin exam: PRESENT: intact, warm. ABSENT: erythema Adult Front & Back Image: 1 - Left lower extremity is shortened and externally rotated. Tender palpation over the groin. Excruciating pain with any attempt of log roll or range of motion of the hip. Incision is intact distally to light touch and good capillary refill with palpable dorsalis pedis pulse. Motor is 5 out of 5 distally. Results Laboratory Results: 08/10/17 04:54 08/10/17 04:54 08/10/17 08/10/17 08/10/17 04:45 04:54 04:54 WBC 9.2 RBC 3.71 L Hgb 11.5 L D Hct 33.6 L MCV 91 MCH 30.9 MCHC 34.1 RDW 13.5 Plt Count 206 Sodium 140.2 Potassium 3.8 Chloride 104 Carbon Dioxide 25 Anion Gap 11 BUN 28 H Creatinine 0.95 Est GFR ( Amer) > 60 Est GFR (Non-Af Amer) > 60 Glucose 138 H Calcium 8.9 Urine Color YELLOW Urine Appearance SLIGHTLY-CLOUDY Urine pH 6.0 Ur Specific [place] 1.024 Urine Protein 100 H Urine Glucose (UA) NEGATIVE Urine Ketones NEGATIVE Urine Blood NEGATIVE Urine Nitrite NEGATIVE Ur Leukocyte Esterase NEGATIVE Urine WBC (Auto) 1 Urine RBC (Auto) 4 Impressions: Hip X-Ray 08/09/17 13:20 IMPRESSION: Intertrochanteric fracture of the proximal left femur. No other evidence for fracture is seen. Shoulder X-Ray 08/09/17 14:35 IMPRESSION: NEGATIVE STUDY OF THE LEFT SHOULDER. NO RADIOGRAPHIC EVIDENCE OF ACUTE INJURY. Chest X-Ray 08/09/17 14:37 IMPRESSION: NO ACUTE RADIOGRAPHIC FINDING IN THE CHEST. Status: Image reviewed by me Assessment & Plan - Diagnosis (1) Intertrochanteric fracture of left hip Qualifiers: Encounter type: initial encounter Fracture type: closed Fracture alignment: displaced Qualified Code(s): S72.142A - Displaced intertrochanteric fracture of left femur, initial encounter for closed fracture Is this a current diagnosis for this admission?: Yes Plan: Patient 82-year-old gentleman with left intertrochanteric hip fracture that would be amenable to a fixation with cephalo-medullary nail. Discussed the risk and benefits of surgery. Discussed the benefits of ambulating as well and therapy and postoperative care. Patient has elected to proceed with surgery. Due to his cardiac history patient will get a cardiology clearance. In the meantime keep him bedrest and narcotics for pain control. plan for surgery will be tomorrow in the afternoon. Place him n.p.o. after midnight and started on fluids.
[2017-08-10] MEDS ORDERED: DIPHENHYDRAMINE HCL 50 MG/ML VIAL IV PRN (14:33)
[2017-08-10] MEDS ORDERED: FENTANYL CITRATE INJ/PF 100 MCG/2 ML AMPUL IV PRN ×3 (14:33)
[2017-08-10] MEDS ORDERED: ONDANSETRON HCL INJ/PF 4 MG/2 ML SDV IV PRN (14:33)
[2017-08-10] MEDS ORDERED: MEPERIDINE HCL/PF INJ 25 MG/1 ML DISP.SYRIN IV PRN (14:33)
--- NOTE | 2017-08-10 15:07 | Operative Report ---
Operative Report DATE OF SURGERY: 08/10/17 PREOPERATIVE DIAGNOSIS: Displaced left intertrochanteric hip fracture POSTOPERATIVE DIAGNOSIS: Same OPERATION: Cephalo-medullary nailing of left intertrochanteric hip fracture SURGEON: KEVIN MEI ANESTHESIA: GA TISSUE REMOVED OR ALTERED: None COMPLICATIONS: None ESTIMATED BLOOD LOSS: 150 mL INTRAOPERATIVE FINDINGS: As above PROCEDURE: Patient was seen and evaluated in the preoperative holding area. The left lower extremity was initialized and marked. Patient received 2 g Ancef IV for bacterial prophylaxis. Patient was taken back to the operative room where transferred operative table. Patient was placed under spinal anesthesia. Once adequate anesthetized he was carefully placed onto the hip positioner the nonoperative lower extremity and bilateral upper extremities were carefully padded and the peroneal nerve was padded and on the nonoperative extremity. The operative extremity was placed in a traction along with adduction and internal rotation. A surgical team debriefing was performed ensuring all instrumentation was available, the surgical procedure was discussed with possible concerns reviewed. A timeout was done identifying correct patient, procedure and extremity everyone in attendance agree with this and verbalized no concerns. Reduction maneuver with the use of the hip traction table were done and C-arm fluoroscopy was used to confirm optimal reduction of the intertrochanteric fracture. Once this was confirmed the lower extremity was prepped with chlor prep and draped in a sterile fashion. At this point a small skin incision was made proximal to the greater trochanter. The guidewire was placed onto the tip of the trochanter advanced down to the level of the lesser trochanter. AP and lateral fluoroscopy was used to confirm appropriate placement of the guidewire. The skin incision was then extended and the underlying fascia opened up carefully to the tip of the greater trochanter. The entry reamer was then used and advanced to the level of the lesser trochanter. At this point [place] short gamma nail was opened up and placed onto the aiming arm and advanced down the shaft of the femur. AP and lateral fluoroscopy was then used to confirm appropriate placement of the nail. Then turned my attention to the compression screw fixation in the femoral head. The trochars were advanced to the skin, a skin incision was made, careful dissection down to the fascia to the lateral femoral cortex was then partaken. The guidewire was then used and placed in the center center position with the tip apex distance less than 25 mm. Once this position was obtained the size of the compression screw was measured. AP and lateral fluoroscopy used to confirm appropriate placement of our guide wire. The step reamer was used to drill up through the femoral neck and head. I then carefully advanced the compression screw into position. AP and lateral fluoroscopy was done to confirm appropriate placement of the compression screw this was then locked into position proximally. The compression screw was then disengaged from its mounting device and the guidewire was removed. Lastly proceeded with locking of the nail distally. Using the aiming arm the trochars were advanced to the skin, a skin incision was made. Careful dissection done with a hemostat to the lateral cortex of the femur. I then drilled the near and far cortices. Measured the appropriate sized distal locking screw and secured it into position. At this point AP/lateral and oblique views of the proximal and distal aspect of the nail were taken confirming appropriate placement of the compression screw, distal locking screw and intramedullary nail. Once this was confirmed I proceeded with copious irrigation of the proximal and distal wounds. The deep tissues were closed with 0 Vicryl suture, subcutaneous tissues were closed with 3-0 Monocryl suture. The skin was closed a running 3-0 subcuticular Monocryl suture and reinforced with Dermabond & Steri-Strips. A dressing was placed. Sponge counts, instrument counts and needle counts were correct. Patient was then transferred from the operating room table to the operating room stretcher. The was no intraoperative complications patient tolerated procedure well was stable to PACU. Implants used: [place] 11 x 180 mm 125 Short Gamma Nail with a 110 mm compression screw Postoperative plan: Patient will begin physical therapy on postop day #1 with Xarelto daily.
[2017-08-10] MEDS ORDERED: RINGERS SOLUTION,LACTATED 1,000 ML IV PRN (15:09)
[2017-08-10] MEDS ORDERED: MAG HYDROX/AL HYDROX/SIMETH SUSP 30 ML UDCUP PO PRN (15:17)
[2017-08-10] MEDS ORDERED: ACETAMINOPHEN 325 MG TABLET PO PRN (15:17)
--- NOTE | 2017-08-10 15:34 | RADIOLOGY REPORT (SQ) ---
EXAM DESCRIPTION: HIP IN OPERATING RM; NO CHG FLUORO COMPLETED DATE/TIME: 08/10/2017 3:22 pm REASON FOR STUDY: ORIF LEFT HIP ASST WITH FLUORO IN OR COMPARISON: Left hip films 08/09/2017 FLUOROSCOPY TIME: 0.8 minutes 4 digital images saved to PACS. TECHNIQUE: Intra-operative images acquired during surgical procedure to evaluate progress. NUMBER OF IMAGES: 4 digital C-arm images LIMITATIONS: None. FINDINGS: 4 digital C-arm images are saved to pac's during ORIF left proximal femoral fracture with a lag screw and intramedullary nail. Good alignment at the fracture site. Please see the operative report for further details IMPRESSION: Intra procedural imaging and fluoro COMMENT: Quality ID 145: Final reports for procedures using fluoroscopy that document radiation exp osure indices, or exposure time and number of fluorographic images (if radiation exposure indices are not available) Please consult full operative report of the attending physician for description of the procedure. TECHNICAL DOCUMENTATION: JOB ID: [id number] [employer]- All Rights Reserved Reading location - IP/workstation name: [email or web address]
--- NOTE | 2017-08-10 15:34 | RADIOLOGY REPORT (SQ) ---
EXAM DESCRIPTION: HIP IN OPERATING RM; NO CHG FLUORO COMPLETED DATE/TIME: 08/10/2017 3:22 pm REASON FOR STUDY: ORIF LEFT HIP ASST WITH FLUORO IN OR COMPARISON: Left hip films 08/09/2017 FLUOROSCOPY TIME: 0.8 minutes 4 digital images saved to PACS. TECHNIQUE: Intra-operative images acquired during surgical procedure to evaluate progress. NUMBER OF IMAGES: 4 digital C-arm images LIMITATIONS: None. FINDINGS: 4 digital C-arm images are saved to pac's during ORIF left proximal femoral fracture with a lag screw and intramedullary nail. Good alignment at the fracture site. Please see the operative report for further details IMPRESSION: Intra procedural imaging and fluoro COMMENT: Quality ID 145: Final reports for procedures using fluoroscopy that document radiation exp osure indices, or exposure time and number of fluorographic images (if radiation exposure indices are not available) Please consult full operative report of the attending physician for description of the procedure. TECHNICAL DOCUMENTATION: JOB ID: [id number] [employer]- All Rights Reserved Reading location - IP/workstation name: [email or web address]
[2017-08-10] MEDS: CEFAZOLIN 2 GM/D5W RTU 2 GM/50 ML RTUPB IV SCH ×2 (18:25→23:18)
[2017-08-10] MEDS: SENNOSIDES/DOCUSATE 8.6-50 MG 1 EACH TABLET PO SCH (18:26)
[2017-08-10] MEDS: ONDANSETRON HCL INJ/PF 4 MG/2 ML SDV IV PRN (19:14)
--- NOTE | 2017-08-10 20:24 | RADIOLOGY REPORT (SQ) ---
EXAM DESCRIPTION: HIP LEFT AP/LATERAL COMPLETED DATE/TIME: 08/10/2017 8:10 pm REASON FOR STUDY: Post Op COMPARISON: 08/09/2017 NUMBER OF VIEWS: Three views. TECHNIQUE: AP pelvis and additional frog-leg view of the left hip. LIMITATIONS: None. FINDINGS: MINERALIZATION: Normal. LEFT HIP: There is a medullary trey in the femur with a long cannulated screw that extends through the femoral neck. The alignment is satisfactory. RIGHT HIP: No fracture or dislocation. No worrisome bone lesions. PUBIS AND ISCHIUM: No fracture. PELVIS: No fracture. SACRUM: No fracture or dislocation. No worrisome bone lesions. LOWER LUMBAR SPINE: No fracture or dislocation. No worrisome bone lesions. No significant disc disea se. SOFT TISSUES: No findings. OTHER: No other significant finding. IMPRESSION: Surgical changes. TECHNICAL DOCUMENTATION: JOB ID: [id number] [employer]- All Rights Reserved Reading location - IP/workstation name: [email or web address]
[2017-08-10] MEDS: RIVAROXABAN 10 MG TABLET PO SCH (22:44)
[2017-08-10] MEDS: SIMVASTATIN 10 MG TABLET PO SCH (22:44)
[2017-08-10] MEDS: INSULIN GLARGINE,HUM.REC.ANLOG 1,000 UNIT/10 ML UNIT SUBCUT SCH (22:44)
[2017-08-11] MEDS: CEFAZOLIN 2 GM/D5W RTU 2 GM/50 ML RTUPB IV SCH ×3 (05:12→17:31)
[2017-08-11] MEDS: TRAMADOL HCL 50 MG TABLET PO PRN (05:12)
[2017-08-11 06:23] LABS: HEMOGLOBIN 9.9 g/dL (13.5-17.0); MEAN CORPUSCULAR HEMOGLOBIN 31.4 pg (27.0-33.4); MEAN CORPUSCULAR HGB CONC 34.3 g/dL (32.0-36.0); MEAN CORPUSCULAR VOLUME 92 fl (80-97); PLATELET COUNT 165 10^3/uL (150-450); RED BLOOD COUNT 3.16 10^6/uL (4.35-5.55); RED CELL DISTRIBUTION WIDTH 13.2 % (11.5-14.0); WHITE BLOOD COUNT 9.5 10^3/uL (4.0-10.5)
[2017-08-11 06:48] LABS: BLOOD UREA NITROGEN 28 mg/dL (7-20); CALCIUM 8.5 mg/dL (8.4-10.2); GLUCOSE 113 mg/dL (75-110)
[2017-08-11 06:49] LABS: ANION GAP 12 (5-19); CARBON DIOXIDE 26 mmol/L (22-30); CHLORIDE 102 mmol/L (98-107); POTASSIUM 4.1 mmol/L (3.6-5.0); SODIUM 139.5 mmol/L (137-145)
[2017-08-11] MEDS: ONDANSETRON HCL INJ/PF 4 MG/2 ML SDV IV PRN (08:50)
[2017-08-11] MEDS: PRENATAL VITAMIN W DHA CAPSULE PO SCH (09:51)
[2017-08-11] MEDS: ASPIRIN 81 MG TABLET, ENT COATED PO SCH (09:51)
[2017-08-11] MEDS: SOTALOL HCL 80 MG TABLET PO SCH ×2 (09:51→17:31)
[2017-08-11] MEDS: SENNOSIDES/DOCUSATE 8.6-50 MG 1 EACH TABLET PO SCH ×2 (09:52→17:32)
[2017-08-11] MEDS: TAMSULOSIN HCL 0.4 MG CAP.SR.24H PO SCH (09:52)
[2017-08-11] MEDS: CLOPIDOGREL BISULFATE 75 MG TABLET PO SCH (09:52)
[2017-08-11] MEDS: CYANOCOBALAMIN (VITAMIN B-12) 1,000 MCG TABLET PO SCH (09:52)
[2017-08-11] MEDS: FUROSEMIDE 20 MG TABLET PO SCH (09:52)
[2017-08-11] MEDS: FINASTERIDE 5 MG TABLET PO SCH (09:52)
[2017-08-11] MEDS: FAMOTIDINE 20 MG TABLET PO SCH ×2 (09:53→21:50)
--- NOTE | 2017-08-11 17:32 | PDOC PROGRESS REPORT ---
Subjective Progress Note for:: 08/11/17 Subjective:: Patient admitted with the hip fracture. He is POD 1. He has been u and out of bed today though currently laying in bed. Daughter is at bedside and no complaints were offered Reason For Visit: STATUS POST ORIF OF LEFT HIP FRACTURE Physical Exam Vital Signs: Temp Pulse Resp BP Pulse Ox 98.7 F 73 16 106/55 L 95 08/11/17 11:43 08/11/17 14:00 08/11/17 11:43 08/11/17 11:43 08/11/17 11:43 Intake & Output 08/10/17 08/11/17 08/12/17 06:59 06:59 06:59 Intake Total 450 2300 477 Output Total 150 Balance 450 2150 477 Weight 92.1 kg 92.2 kg General appearance: PRESENT: other - Elderly but looks younger than stated age Head exam: PRESENT: atraumatic Eye exam: PRESENT: conjunctiva pink, EOMI, PERRLA. ABSENT: scleral icterus Neck exam: ABSENT: carotid bruit, JVD, lymphadenopathy, thyromegaly Respiratory exam: PRESENT: clear to auscultation krissy. ABSENT: rales, rhonchi, wheezes Cardiovascular exam: PRESENT: RRR. ABSENT: diastolic murmur, rubs, systolic murmur Pulses: PRESENT: normal dorsalis pedis pul GI/Abdominal exam: PRESENT: normal bowel sounds, soft. ABSENT: distended, guarding, mass, organolmegaly, rebound, tenderness Rectal exam: PRESENT: deferred Musculoskeletal exam: PRESENT: other - L hip incision site looks clean, no discharges Neurological exam: PRESENT: alert, awake, oriented to person, oriented to place , oriented to time, oriented to situation Psychiatric exam: PRESENT: appropriate affect, normal mood. ABSENT: homicidal ideation, suicidal ideation Results Laboratory Results: 08/11/17 05:28 08/11/17 05:28 08/11/17 08/11/17 05:28 05:28 WBC 9.5 RBC 3.16 L Hgb 9.9 L Hct 29.0 L MCV 92 MCH 31.4 MCHC 34.3 RDW 13.2 Plt Count 165 Sodium 139.5 Potassium 4.1 Chloride 102 Carbon Dioxide 26 Anion Gap 12 BUN 28 H Creatinine 1.01 Est GFR ( Amer) > 60 Est GFR (Non-Af Amer) > 60 Glucose 113 H Calcium 8.5 Impressions: Shoulder X-Ray 08/09/17 14:35 IMPRESSION: NEGATIVE STUDY OF THE LEFT SHOULDER. NO RADIOGRAPHIC EVIDENCE OF ACUTE INJURY. Chest X-Ray 08/09/17 14:37 IMPRESSION: NO ACUTE RADIOGRAPHIC FINDING IN THE CHEST. Fluoroscopy 08/10/17 00:00 IMPRESSION: Intra procedural imaging and fluoro Hip X-Ray 08/10/17 15:16 IMPRESSION: Surgical changes. Assessment & Plan - Time Time Spent with patient: 15-24 minutes Medications reviewed and adjusted accordingly: Yes Anticipated discharge: Home - Plan Summary Plan Summary: 1. Intertrochanteric fracture of left hip, POD 1, with no complaints. 2.History of atrial fibrillation currently on sotalol. He is not anticoagulated possibly due to being a fall risk. 3. Type 2 diabetes mellitus currently on sliding scale insulin 4. History of carotid endarterectomy-back on Plavix and ASA 5. Benign prostatic hyperplasia asymptomatic 6. Stable coronary artery disease patient has been evaluated by cardiology 7. On Xarelto 10mg prophylactically
[2017-08-11] MEDS: SIMVASTATIN 10 MG TABLET PO SCH (21:50)
[2017-08-11] MEDS: RIVAROXABAN 10 MG TABLET PO SCH (21:50)
[2017-08-11] MEDS: INSULIN GLARGINE,HUM.REC.ANLOG 1,000 UNIT/10 ML UNIT SUBCUT SCH (21:50)
[2017-08-12] MEDS: CEFAZOLIN 2 GM/D5W RTU 2 GM/50 ML RTUPB IV SCH ×4 (01:05→18:04)
[2017-08-12 06:33] LABS: HEMATOCRIT 25.5 % (37.9-51.0); HEMOGLOBIN 8.9 g/dL (13.5-17.0); MEAN CORPUSCULAR HEMOGLOBIN 31.8 pg (27.0-33.4); MEAN CORPUSCULAR VOLUME 91 fl (80-97); PLATELET COUNT 170 10^3/uL (150-450); RED CELL DISTRIBUTION WIDTH 13.2 % (11.5-14.0); WHITE BLOOD COUNT 10.1 10^3/uL (4.0-10.5)
[2017-08-12 06:52] LABS: ANION GAP 7 (5-19); BLOOD UREA NITROGEN 24 mg/dL (7-20); CALCIUM 8.5 mg/dL (8.4-10.2); CARBON DIOXIDE 28 mmol/L (22-30); CHLORIDE 102 mmol/L (98-107); GLUCOSE 102 mg/dL (75-110); POTASSIUM 3.7 mmol/L (3.6-5.0); SODIUM 136.9 mmol/L (137-145)
[2017-08-12] MEDS: OXYCODONE HCL IR 5 MG TABLET PO PRN (08:19)
[2017-08-12] MEDS: CYANOCOBALAMIN (VITAMIN B-12) 1,000 MCG TABLET PO SCH (09:25)
[2017-08-12] MEDS: SENNOSIDES/DOCUSATE 8.6-50 MG 1 EACH TABLET PO SCH ×2 (09:25→18:01)
[2017-08-12] MEDS: TAMSULOSIN HCL 0.4 MG CAP.SR.24H PO SCH (09:25)
[2017-08-12] MEDS: FAMOTIDINE 20 MG TABLET PO SCH ×2 (09:25→22:02)
[2017-08-12] MEDS: FUROSEMIDE 20 MG TABLET PO SCH (09:25)
[2017-08-12] MEDS: ASPIRIN 81 MG TABLET, ENT COATED PO SCH (09:26)
[2017-08-12] MEDS: PRENATAL VITAMIN W DHA CAPSULE PO SCH (09:26)
[2017-08-12] MEDS: SOTALOL HCL 80 MG TABLET PO SCH ×2 (09:26→18:01)
[2017-08-12] MEDS: FINASTERIDE 5 MG TABLET PO SCH (09:26)
[2017-08-12] MEDS: CLOPIDOGREL BISULFATE 75 MG TABLET PO SCH (09:26)
--- NOTE | 2017-08-12 17:04 | PDOC PROGRESS REPORT ---
Subjective Progress Note for:: 08/12/17 Subjective:: Patient is eating in bed and stating that he ablator to 40 feet today. Pain is adequately controlled. Reason For Visit: STATUS POST ORIF OF LEFT HIP FRACTURE Physical Exam Vital Signs: Temp Pulse Resp BP Pulse Ox 36.9 C 68 20 130/53 H 95 08/12/17 15:39 08/12/17 15:39 08/12/17 15:39 08/12/17 15:39 08/12/17 15:39 Intake & Output 08/11/17 08/12/17 08/13/17 06:59 06:59 06:59 Intake Total 2300 2647 690 Output Total 150 175 Balance 2150 2647 515 Weight 92.2 kg 95.2 kg General appearance: PRESENT: no acute distress Adult Front & Back Image: 1 - Dressing was changed and the incisions are dry clean and intact. Neurovascular intact distally. Mild ecchymosis. Results Laboratory Results: 08/12/17 05:42 08/12/17 05:42 08/12/17 08/12/17 05:42 05:42 WBC 10.1 RBC 2.80 L Hgb 8.9 L Hct 25.5 L MCV 91 MCH 31.8 MCHC 35.0 RDW 13.2 Plt Count 170 Sodium 136.9 L Potassium 3.7 Chloride 102 Carbon Dioxide 28 Anion Gap 7 BUN 24 H Creatinine 1.02 Est GFR ( Amer) > 60 Est GFR (Non-Af Amer) > 60 Glucose 102 Calcium 8.5 Impressions: Shoulder X-Ray 08/09/17 14:35 IMPRESSION: NEGATIVE STUDY OF THE LEFT SHOULDER. NO RADIOGRAPHIC EVIDENCE OF ACUTE INJURY. Chest X-Ray 08/09/17 14:37 IMPRESSION: NO ACUTE RADIOGRAPHIC FINDING IN THE CHEST. Fluoroscopy 08/10/17 00:00 IMPRESSION: Intra procedural imaging and fluoro Hip X-Ray 08/10/17 15:16 IMPRESSION: Surgical changes. Status: Image reviewed by me Assessment & Plan - Diagnosis (1) Intertrochanteric fracture of left hip Qualifiers: Encounter type: initial encounter Fracture type: closed Fracture alignment: displaced Qualified Code(s): S72.142A - Displaced intertrochanteric fracture of left femur, initial encounter for closed fracture Is this a current diagnosis for this admission?: Yes - Plan Summary Plan Summary: Patient is 82-year-old male POD #2 from her medullary nailing of left intertrochanteric hip fracture. Continue physical therapy Continue pain control Continue DVT prophylaxis Patient actually will likely be discharged home with home health.
--- NOTE | 2017-08-12 17:23 | PDOC PROGRESS REPORT ---
Subjective Progress Note for:: 08/12/17 Subjective:: Patient admitted with the hip fracture. He is POD 2. Patient has no complaints. Reason For Visit: STATUS POST ORIF OF LEFT HIP FRACTURE Physical Exam Vital Signs: Temp Pulse Resp BP Pulse Ox 98.5 F 68 20 130/53 H 95 08/12/17 15:39 08/12/17 15:39 08/12/17 15:39 08/12/17 15:39 08/12/17 15:39 Intake & Output 08/11/17 08/12/17 08/13/17 06:59 06:59 06:59 Intake Total 2300 2647 690 Output Total 150 175 Balance 2150 2647 515 Weight 92.2 kg 95.2 kg General appearance: PRESENT: no acute distress Head exam: PRESENT: atraumatic Ear exam: PRESENT: normal external ear exam Respiratory exam: PRESENT: clear to auscultation krissy. ABSENT: rales, rhonchi, wheezes Cardiovascular exam: PRESENT: RRR. ABSENT: diastolic murmur, rubs, systolic murmur GI/Abdominal exam: PRESENT: normal bowel sounds, soft. ABSENT: distended, guarding, mass, organolmegaly, rebound, tenderness Extremities exam: PRESENT: other - Incision left hip appears to be clean with mild ecchymosis Psychiatric exam: PRESENT: appropriate affect, normal mood. ABSENT: homicidal ideation, suicidal ideation Skin exam: PRESENT: other - Left thigh incision Results Laboratory Results: 08/12/17 05:42 08/12/17 05:42 08/12/17 08/12/17 05:42 05:42 WBC 10.1 RBC 2.80 L Hgb 8.9 L Hct 25.5 L MCV 91 MCH 31.8 MCHC 35.0 RDW 13.2 Plt Count 170 Sodium 136.9 L Potassium 3.7 Chloride 102 Carbon Dioxide 28 Anion Gap 7 BUN 24 H Creatinine 1.02 Est GFR ( Amer) > 60 Est GFR (Non-Af Amer) > 60 Glucose 102 Calcium 8.5 Impressions: Shoulder X-Ray 08/09/17 14:35 IMPRESSION: NEGATIVE STUDY OF THE LEFT SHOULDER. NO RADIOGRAPHIC EVIDENCE OF ACUTE INJURY. Chest X-Ray 08/09/17 14:37 IMPRESSION: NO ACUTE RADIOGRAPHIC FINDING IN THE CHEST. Fluoroscopy 08/10/17 00:00 IMPRESSION: Intra procedural imaging and fluoro Hip X-Ray 08/10/17 15:16 IMPRESSION: Surgical changes. Assessment & Plan - Time Time Spent with patient: 15-24 minutes Medications reviewed and adjusted accordingly: Yes Anticipated discharge: Home with Homehealth Within: within 24 hours - Inpatient Certification Based on my medical assessment, after consideration of the patient's comorbidities, presenting symptoms, or acuity I expect that the services needed warrant INPATIENT care.: Yes Medical Necessity: Risk of Complication if Not Cared For in Hospital - Plan Summary Plan Summary: 1. Intertrochanteric fracture of left hip, POD 2, with patient progressing as expected. He has been ambulatory with physical therapy. Plan is to discharge home in a.m. with home health 2.History of atrial fibrillation currently on sotalol. Controlled 3. Type 2 diabetes mellitus currently on sliding scale insulin 4. History of carotid endarterectomy-continue Plavix and ASA 5. Benign prostatic hyperplasia asymptomatic 6. Stable coronary artery disease patient has been evaluated by cardiology 7. On Xarelto 10mg prophylactically postop 8. Plan is for discharge in a.m. if he remains stable. 9. Anemia likely secondary to surgery but no evidence of acute or ongoing blood loss and no further interventions planned His baseline hemoglobin as far back as 2014 appears to be around 9-9.8 and the initial hemoglobin on admission this time was likely an artifact likely due to dehydration on initial presentation.
[2017-08-12] MEDS: INSULIN GLARGINE,HUM.REC.ANLOG 1,000 UNIT/10 ML UNIT SUBCUT SCH (22:00)
[2017-08-12] MEDS: RIVAROXABAN 10 MG TABLET PO SCH (22:01)
[2017-08-12] MEDS: SIMVASTATIN 10 MG TABLET PO SCH (22:01)
[2017-08-13 06:32] LABS: HEMATOCRIT 25.4 % (37.9-51.0); HEMOGLOBIN 8.8 g/dL (13.5-17.0); MEAN CORPUSCULAR HEMOGLOBIN 31.3 pg (27.0-33.4); MEAN CORPUSCULAR HGB CONC 34.5 g/dL (32.0-36.0); MEAN CORPUSCULAR VOLUME 91 fl (80-97); PLATELET COUNT 186 10^3/uL (150-450); RED BLOOD COUNT 2.79 10^6/uL (4.35-5.55); RED CELL DISTRIBUTION WIDTH 13.1 % (11.5-14.0); WHITE BLOOD COUNT 8.3 10^3/uL (4.0-10.5)
[2017-08-13] MEDS: OXYCODONE HCL IR 5 MG TABLET PO PRN (08:07)
[2017-08-13] MEDS: ACETAMINOPHEN 325 MG TABLET PO PRN (08:09)
[2017-08-13] MEDS: CLOPIDOGREL BISULFATE 75 MG TABLET PO SCH (11:30)
[2017-08-13] MEDS: CYANOCOBALAMIN (VITAMIN B-12) 1,000 MCG TABLET PO SCH (11:30)
[2017-08-13] MEDS: PRENATAL VITAMIN W DHA CAPSULE PO SCH (11:30)
[2017-08-13] MEDS: ASPIRIN 81 MG TABLET, ENT COATED PO SCH (11:30)
[2017-08-13] MEDS: SENNOSIDES/DOCUSATE 8.6-50 MG 1 EACH TABLET PO SCH (11:31)
[2017-08-13] MEDS: FAMOTIDINE 20 MG TABLET PO SCH (11:31)
[2017-08-13] MEDS: FUROSEMIDE 20 MG TABLET PO SCH (11:31)
[2017-08-13] MEDS: SOTALOL HCL 80 MG TABLET PO SCH (11:32)
[2017-08-13] MEDS: FINASTERIDE 5 MG TABLET PO SCH (11:32)
[2017-08-13] MEDS: TAMSULOSIN HCL 0.4 MG CAP.SR.24H PO SCH (11:33)
--- NOTE | 2017-08-13 11:53 | PDOC PROGRESS REPORT ---
Subjective Progress Note for:: 08/11/17 Subjective:: Patient seen postop and seems to be doing well. There is no chest pain. Vital signs are noted to be stable. Reason For Visit: STATUS POST ORIF OF LEFT HIP FRACTURE Physical Exam Vital Signs: Temp Pulse Resp BP Pulse Ox 98.7 F 73 16 106/55 L 95 08/11/17 11:43 08/11/17 14:00 08/11/17 11:43 08/11/17 11:43 08/11/17 11:43 Intake & Output 08/10/17 08/11/17 08/12/17 06:59 06:59 06:59 Intake Total 450 2300 2127 Output Total 150 Balance 450 2150 2127 Weight 92.1 kg 92.2 kg Exam: GENERAL: well-nourished and in no acute distress. Alert and oriented x3 HEAD: Atraumatic, normocephalic. EYES: Pupils equal round and reactive to light, extraocular movements intact, sclera anicteric, conjunctiva are normal. ENT: TMs normal, nares patent, oropharynx clear without exudates. Moist mucous membranes. No oral ulcerations or bleeding gums noted NECK: supple without lymphadenopathy. Trachea is central. No cervical or axillary lymphadenopathy noted. Carotids are 2+, JVD WNL LUNGS: Respiration seems nonlabored, no significant accessory muscle action noted. Breath sounds clear to auscultation bilaterally and equal noted. No wheezes rales or rhonchi noted. No significant dullness noted on percussion. CHEST: Palpation of the chest wall shows no significant chest wall tenderness. No other significant abnormalities noted. HEART: [place] SUPERVISOR HEADING, No PSH, 1/6 ZOEY aortic area, 1/6 [place] systolic murmur mitral area, no rubs, no gallops. ABDOMEN: Soft, no significant tenderness appreciated, normoactive bowel sounds. No guarding, no rebound. No rigidity noted . No masses appreciated. EXTREMITIES: Pedal pulses are 1-2+, no calf tenderness noted. No clubbing or cyanosis.trace to 1+ pedal edema noted NEUROLOGICAL: Focused neurological exam showed no significant neurologic deficit. Normal speech, no focal weakness appreciated. PSYCH: Normal mood, normal affect. Judgment and insight within normal limits. SKIN: No significant ecchymosis, skin is noted to be warm. MUSCULOSKELETAL EXAM: No significant acute joint swelling noted. Postsurgical changes left hip surgery. Results Laboratory Results: 08/11/17 05:28 08/11/17 05:28 08/11/17 08/11/17 05:28 05:28 WBC 9.5 RBC 3.16 L Hgb 9.9 L Hct 29.0 L MCV 92 MCH 31.4 MCHC 34.3 RDW 13.2 Plt Count 165 Sodium 139.5 Potassium 4.1 Chloride 102 Carbon Dioxide 26 Anion Gap 12 BUN 28 H Creatinine 1.01 Est GFR ( Amer) > 60 Est GFR (Non-Af Amer) > 60 Glucose 113 H Calcium 8.5 EKG Comments: Telemetry strips shows sinus rhythm without any sustained tachycardia or bradycardia. Impressions: Shoulder X-Ray 08/09/17 14:35 IMPRESSION: NEGATIVE STUDY OF THE LEFT SHOULDER. NO RADIOGRAPHIC EVIDENCE OF ACUTE INJURY. Chest X-Ray 08/09/17 14:37 IMPRESSION: NO ACUTE RADIOGRAPHIC FINDING IN THE CHEST. Fluoroscopy 08/10/17 00:00 IMPRESSION: Intra procedural imaging and fluoro Hip X-Ray 08/10/17 15:16 IMPRESSION: Surgical changes. Assessment & Plan - Diagnosis (1) Preoperative cardiovascular examination Is this a current diagnosis for this admission?: Yes (2) Hyperlipidemia Qualifiers: Hyperlipidemia type: unspecified Qualified Code(s): E78.5 - Hyperlipidemia , unspecified Is this a current diagnosis for this admission?: Yes (3) Hypertension Qualifiers: Hypertension type: essential hypertension Qualified Code(s): I10 - Essential (primary) hypertension Is this a current diagnosis for this admission?: Yes (4) Coronary artery disease Qualifiers: Coronary Disease-Associated Artery/Lesion type: [place] artery [place] vs. transplanted heart: [place] heart Associated angina: angina presence unspecified Qualified Code(s): I25.10 - Atherosclerotic heart disease of [place] coronary artery without angina pectoris Is this a current diagnosis for this admission?: Yes (5) H/O carotid endarterectomy Is this a current diagnosis for this admission?: Yes (6) History of atrial fibrillation Is this a current diagnosis for this admission?: Yes (7) Type 2 diabetes mellitus Qualifiers: Diabetes mellitus phone banker insulin use: unspecified half-way insulin use status Diabetes mellitus complication status: with unspecified complications Qualified Code(s): E11.8 - Type 2 diabetes mellitus with unspecified complications Is this a current diagnosis for this admission?: Yes - Notes Notes: Patient underwent hip surgery without any complications. Patient was not noted to have any chest pain or shortness of breath. He is working with physical therapy. There has been no recurrence of atrial fibrillation. Patient generally stable from cardiac standpoint. Patient advised to report to the nurses in case he has chest pain, unusual shortness of breath, palpitations , syncope or near syncope. Patient can follow-up with me on discharge or follow -up with his linesperson. - Time Time with patient: 15-25 minutes - CODE STATUS was discussed, patient remains full code. Surrogate decision-maker unchanged. Multiple medical problems were addressed. More than 50% of the time spent coordinating care, discussing management plans with involved caregivers. Management plans discussed with involved personnels. Medical decision making was of moderate to high complexity , patient's has multiple comorbidities. Medications reviewed and adjusted accordingly: Yes
[2017-08-13 12:11] VITALS: BP 114/50
--- NOTE | 2017-08-13 13:38 | PDOC PROGRESS REPORT ---
Subjective Progress Note for:: 08/13/17 Subjective:: Patient states she is ready to go home today. Does not complain of chest pain or any other complaint except for pain. Reason For Visit: STATUS POST ORIF OF LEFT HIP FRACTURE Physical Exam Vital Signs: Temp Pulse Resp BP Pulse Ox 36.6 C 63 18 114/50 L 97 08/13/17 13:33 08/13/17 13:33 08/13/17 13:33 08/13/17 13:33 08/13/17 13:33 Intake & Output 08/12/17 08/13/17 08/14/17 06:59 06:59 06:59 Intake Total 2647 1070 Output Total 175 Balance 2647 895 Weight 95.2 kg 95.4 kg Adult Front & Back Image: 1 - Ecchymosis with dry clean and intact dressings and latasha. Sensation is intact distally with good capillary refill and palpable pedal pulse. Motor 5 out of 5 distally. Still limited range of motion of the hip second to pain. Results Laboratory Results: 08/13/17 05:57 08/12/17 05:42 08/13/17 05:57 WBC 8.3 RBC 2.79 L Hgb 8.8 L Hct 25.4 L MCV 91 MCH 31.3 MCHC 34.5 RDW 13.1 Plt Count 186 Impressions: Shoulder X-Ray 08/09/17 14:35 IMPRESSION: NEGATIVE STUDY OF THE LEFT SHOULDER. NO RADIOGRAPHIC EVIDENCE OF ACUTE INJURY. Chest X-Ray 08/09/17 14:37 IMPRESSION: NO ACUTE RADIOGRAPHIC FINDING IN THE CHEST. Fluoroscopy 08/10/17 00:00 IMPRESSION: Intra procedural imaging and fluoro Hip X-Ray 08/10/17 15:16 IMPRESSION: Surgical changes. Status: Image reviewed by me Assessment & Plan - Diagnosis (1) Intertrochanteric fracture of left hip Qualifiers: Encounter type: initial encounter Fracture type: closed Fracture alignment: displaced Qualified Code(s): S72.142A - Displaced intertrochanteric fracture of left femur, initial encounter for closed fracture Is this a current diagnosis for this admission?: Yes - Plan Summary Plan Summary: Patient is postop day 3 from undergoing intramedullary nailing of left intertrochanteric hip fracture. \Hemoglobin is stabilized. Patient pain well controlled. Patient will be discharged today so patient will follow-up with me and the next 10-14 days. Continue PT at home and protected weightbearing left lower extremity.
--- NOTE | 2017-08-13 19:55 | PDOC DISCHARGE SUMMARY ---
General - Admit/Disc Date/PCP Admission Date/Primary Care Provider: 08/09/17 16:12 DONIS STINSON MD Discharge Date: 08/13/17 - Discharge Diagnosis (1) Coronary artery disease Is this a current diagnosis for this admission?: Yes (2) H/O carotid endarterectomy Is this a current diagnosis for this admission?: Yes (3) History of atrial fibrillation Is this a current diagnosis for this admission?: Yes (4) Hypertension Is this a current diagnosis for this admission?: Yes (5) Intertrochanteric fracture of left hip Is this a current diagnosis for this admission?: Yes (6) Type 2 diabetes mellitus Is this a current diagnosis for this admission?: Yes - Additional Information Resuscitation Status: Full Code Discharge Diet: As Tolerated, Cardiac Discharge Activity: Activity As Tolerated Prescriptions: Rivaroxaban [Xarelto 10 mg Tablet] 10 mg PO QHS #30 tablet Oxycodone HCl [Oxy-Ir 5 mg Tablet] 5 - 10 mg PO Q4HP PRN #14 tablet PRN Reason: Tramadol HCl 50 mg PO Q6H PRN #20 tablet PRN Reason: Home Medications: Alfuzosin HCl [Alfuzosin HCl ER] 10 mg PO DAILY 08/09/17 Aspirin [Ecotrin 81 mg EC Tablet] 81 mg PO DAILY 08/09/17 Clopidogrel Bisulfate [Plavix 75 mg Tablet] 75 mg PO DAILY 08/09/17 Cyanocobalamin (Vitamin B-12) [Vitamin B-12 1000 mcg Tablet] 1,000 mcg PO DAILY 08/09/17 Finasteride [Proscar 5 mg Tablet] 5 mg PO DAILY 08/09/17 Furosemide [Lasix 20 mg Tablet] 20 mg PO DAILY 08/09/17 Insulin Glargine,Hum.rec.anlog [Lantus Insulin 100 Unit/1 ml 10 ml] 10 units SQ QHS 08/09/17 Simvastatin [Zocor 20 mg Tablet] 20 mg PO QHS 08/09/17 Sotalol HCl [Sotalol] 80 mg PO BID 08/09/17 Oxycodone HCl [Oxy-Ir 5 mg Tablet] 5 - 10 mg PO Q4HP PRN #14 tablet 08/13/17 Vit/Dha [ Multi + Dha Capsule] 1 cap PO DAILY capsule Rivaroxaban [Xarelto 10 mg Tablet] 10 mg PO QHS #30 tablet 08/13/17 Tramadol HCl 50 mg PO Q6H PRN #20 tablet 08/13/17 History of Present Illness Patient complains of: Fall and subsequent Left hip fracture History of Present Illness: CHON LOWE is a 82 year old male Hospital Course Hospital Course: This patient is a admitted after slipping on the floor and sustaining a fracture of his left hip. He was seen by orthopedics and ultimately had operative repair of his left hip. He remained hemodynamically stable throughout his hospital stay. He was seen by cardiology due to his history of atrial fibrillation and coronary artery disease and two-dimensional echocardiogram done revealed normal left ventricular systolic function and ejection fraction with a grade 2 mild to moderate diastolic dysfunction. Patient did well postoperatively. He really had no specific complications. He has been ambulating with PT on a limited basis. It is felt that patient can be discharged home for continued recuperation. Vision has been instructed to follow-up with orthopedic as outpatient and will receive physical therapy also as outpatient. Physical Exam Vital Signs: Temp Pulse Resp BP Pulse Ox 97.8 F 63 18 114/50 L 97 08/13/17 12:10 08/13/17 12:10 08/13/17 12:10 08/13/17 12:10 08/13/17 12:10 Intake & Output 08/12/17 08/13/17 08/14/17 06:59 06:59 06:59 Intake Total 2647 1070 Output Total 175 Balance 2647 895 Weight 95.2 kg 95.4 kg General appearance: PRESENT: no acute distress Head exam: PRESENT: atraumatic Eye exam: PRESENT: conjunctiva pink, EOMI, PERRLA. ABSENT: scleral icterus Ear exam: PRESENT: normal external ear exam Respiratory exam: PRESENT: clear to auscultation krissy. ABSENT: rales, rhonchi, wheezes Cardiovascular exam: PRESENT: RRR. ABSENT: diastolic murmur, rubs, systolic murmur GI/Abdominal exam: PRESENT: normal bowel sounds, soft. ABSENT: distended, guarding, mass, organolmegaly, rebound, tenderness Rectal exam: PRESENT: deferred Extremities exam: PRESENT: other - L hip incision looks clean, no discharges Neurological exam: PRESENT: alert, awake, oriented to time, oriented to situation Psychiatric exam: PRESENT: appropriate affect, normal mood. ABSENT: homicidal ideation, suicidal ideation Results Laboratory Results: 08/13/17 05:57 08/12/17 05:42 08/13/17 05:57 WBC 8.3 RBC 2.79 L Hgb 8.8 L Hct 25.4 L MCV 91 MCH 31.3 MCHC 34.5 RDW 13.1 Plt Count 186 Impressions: Shoulder X-Ray 08/09/17 14:35 IMPRESSION: NEGATIVE STUDY OF THE LEFT SHOULDER. NO RADIOGRAPHIC EVIDENCE OF ACUTE INJURY. Chest X-Ray 08/09/17 14:37 IMPRESSION: NO ACUTE RADIOGRAPHIC FINDING IN THE CHEST. Fluoroscopy 08/10/17 00:00 IMPRESSION: Intra procedural imaging and fluoro Hip X-Ray 08/10/17 15:16 IMPRESSION: Surgical changes. Qualifiers - * PATEINT BEING DISCHARGED WITH ANY OF THE FOLLOWING DIAGNOSIS?: No
== END 2017-08-13 15:07 | disposition home health service (06) | DRG 482 ==
LOC: ER 13:12 → EH 16:12 → UNDOADMIN 16:12 → EH 18:24 → 4S 18:24
PROVIDERS: ADMIT Emergency Medicine; ATTEND Emergency Medicine
PROC: 0QS704Z Reposition Left Upper Femur with Internal Fixation Device, Open Approach (ICD-10-PCS; principal; 2017-08-10 13:45)
DX: S72.142A Displaced intertrochanteric fracture of left femur, initial encounter for closed fracture (principal); I48.91 Unspecified atrial fibrillation; E11.9 Type 2 diabetes mellitus without complications; N40.0 Benign prostatic hyperplasia without lower urinary tract symptoms; I10 Essential (primary) hypertension; E78.5 Hyperlipidemia, unspecified; M19.90 Unspecified osteoarthritis, unspecified site; W01.0XXA Fall on same level from slipping, tripping and stumbling without subsequent striking against object, initial encounter; Y93.89 Activity, other specified; Y92.019 Unspecified place in single-family (private) house as the place of occurrence of the external cause; Y99.8 Other external cause status; Z79.899 Other long term (current) drug therapy; Z79.4 Long term (current) use of insulin; Z79.02 Long term (current) use of antithrombotics/antiplatelets
CPT/HCPCS: 01230; 36415; 71045; 80048; 80053; 81001; 82962; 83036; 83735; 83880; 85025; 85027; 93005; 93010; 93306; 99285; C1713; G8978-GP; G8979-GP; G8987-GO; G8988-GO; G8989-GO; J0690; J1170; J1815; J2250; J2405; J2704; J3010; J3490; J7120

== ENCOUNTER 2017-12-28 06:49 | Day surgery (SDC) | payer MEDICARE ==
[~2017-12-28 06:49] MED LIST: BUPIVACAINE HCL 0.75% INJ/PF (7.5 MG/1 ML) 10 ML SDV OD PRN; KETOROLAC TROMETHAMINE 0.45% 4 DROP/0.4 ML DROPERETTE OD PRN; LIDOCAINE 4% INJ/PF (40 MG/ML) 5 ML AMPUL OD PRN
[2017-12-28] MEDS ORDERED: MIDAZOLAM 2 MG/2 ML INJ ONE (06:54)
[2017-12-28] MEDS ORDERED: EPINEPHRINE INJ/PF 1 MG/1 ML AMPULE ONE (07:08)
[2017-12-28] MEDS ORDERED: LIDOCAINE 1% INJ-PF (10 MG/ML) 30 ML SDV ONE (07:08)
[2017-12-28] MEDS ORDERED: CHONDR SU A NA/HYALUR INTRAOC KIT (SURGICARE) ONE (07:08)
[2017-12-28] MEDS ORDERED: LIDOCAINE 1%/PHENYLEPHRINE 1.5% 1 ML VIAL ONE (07:09)
[2017-12-28] MEDS: TROPICAMIDE 1% OPH SOLN 3 ML OD PRN ×3 (07:10→07:30)
[2017-12-28] MEDS: CYCLOPENTOLATE 0.2%/PHENYLEPHRINE 1% OPH SOLN 2 ML OD PRN ×3 (07:10→07:30)
[2017-12-28] MEDS: TETRACAINE HCL 0.5% OPH SOLN 0.6 ML DROPERETTE OD PRN ×2 (07:10→07:57)
[2017-12-28] MEDS: BESIFLOXACIN HCL 0.6% OPH SUSP 5 ML BOTTLE OD PRN ×4 (07:11→08:24)
--- NOTE | 2017-12-28 08:36 | [facility] OPERATIVE REPORT E ---
[facility] Operative Report NAME: CHON LOWE AGE: 82Y DATE OF SURGERY: 12/28/2017 ROOM: PREOPERATIVE DIAGNOSIS: Cataract, right eye. POSTOPERATIVE DIAGNOSIS: Cataract, right eye. PROCEDURE PERFORMED: Phacoemulsification with posterior chamber intraocular lens, right eye. SURGEON: BRYAN MAYORGA M.D. ANESTHESIA: Topical with MAC. INDICATIONS FOR SURGERY: Difficulty seeing TV and glare at night. Best corrected visual acuity 20/70. PROCEDURE: The patient was brought to the operating room and placed on the operative table. Following tetracaine drops, topical anesthesia was administered. This consisted of instrument wipe pledgets soaked in a solution of 4% Xylocaine mixed with 0.75% Marcaine in a 1:2 ratio. A 2 x 1 cm pledget was placed in the superior fornix. A 1 x 1 cm pledget was placed in the inferior fornix. The eye was patched shut for 5 minutes. The patch was removed. The eye was sterilely prepped and draped in the usual manner. Lid speculum was placed in the eye. The pledgets were removed and 4-0 black silk sutures were placed around the superior and the inferior rectus muscles to be used as traction. A conjunctival peritomy was made at the 10 o'clock position. Hemostasis was obtained with bipolar cautery. A posterior limbal groove was created using a crescent knife and dissected anteriorly towards the cornea. A sharp point blade was used to create a paracentesis site at the 2 o'clock position. A 2.4 mm keratome was used to enter the anterior chamber through the groove. Viscoelastic was injected into the anterior chamber. An anterior capsulotomy was performed using Utrata forceps in a capsulorrhexis fashion. Hydrodissection and hydrodelineation were performed. Phacoemulsification was performed in [id number] technique. A total of 44 seconds phaco time was used. Following this, the I/A unit was used to remove residual cortex. Viscoelastic was injected into the capsular bag. Intraocular lens model [id number], 21.5 diopters, serial number [id number], was placed in the capsular bag. The I/A unit was used to remove residual viscoelastic. The wound was seen to be watertight under high and low pressure, and no sutures were placed. The intraocular lens was well centered. The pressure was adjusted in the eye to normal pressure. The 4-0 black silk sutures and lid speculum were removed. The eye was shielded after Besivance drops were placed. The patient tolerated the procedure well and was sent to the recovery room in good condition. DICTATING PHYSICIAN: BRYAN MAYORGA M.D. [id number] PHY#: [id number] ID: [id number] JOB#: [id number] ACCT: [id number] cc:BRYAN MAYORGA M.D. >
--- NOTE | 2017-12-28 08:36 | [facility] DISCHARGE SUMMARY E ---
[facility] Discharge Summary NAME: CHON LOWE AGE: 82Y ADMITTED: 12/28/2017 DISCHARGED: 12/28/2017 FINAL DIAGNOSIS: Cataract, right eye. HOSPITAL COURSE: The patient is an 82-year-old gentleman who underwent uneventful cataract extraction with intraocular lens implant, right eye, on 12/28/2017. He will be discharged to home. He was instructed to resume preoperative medications; to take Tylenol as needed for discomfort; to keep his eye shielded; to use Prolensa, Besivance, and Durezol at 3 p.m. and 8 p.m.; and to follow up in my office in 1 day. DICTATING PHYSICIAN: BRYAN MAYORGA M.D. [id number] Y#: [id number] ID: [id number] JOB#: [id number] ACCT: [id number] cc:BRYAN MAYORGA M.D. >
== END 2017-12-28 09:12 | disposition home or self-care (01) ==
LOC: SC 06:49
PROVIDERS: ATTEND Ophthalmology
DX: H25.813 Combined forms of age-related cataract, bilateral (principal); H53.461 Homonymous bilateral field defects, right side; H40.013 Open angle with borderline findings, low risk, bilateral; E11.9 Type 2 diabetes mellitus without complications; E78.00 Pure hypercholesterolemia, unspecified; I10 Essential (primary) hypertension; Z79.02 Long term (current) use of antithrombotics/antiplatelets; Z79.899 Other long term (current) drug therapy; Z79.82 Long term (current) use of aspirin; Z86.73 Personal history of transient ischemic attack (TIA), and cerebral infarction without residual deficits; Z87.891 Personal history of nicotine dependence
CPT/HCPCS: 66984; 82962; V2632; J2250; J3490 ×3; A9270; J0171; J2370; 142

== ENCOUNTER 2018-01-18 06:36 | Day surgery (SDC) | payer MEDICARE ==
[~2018-01-18 06:36] MED LIST changes: -BUPIVACAINE HCL 0.75% INJ/PF (7.5 MG/1 ML) 10 ML SDV OD PRN; +BUPIVACAINE HCL 0.75% INJ/PF (7.5 MG/1 ML) 10 ML SDV OS PRN; -KETOROLAC TROMETHAMINE 0.45% 4 DROP/0.4 ML DROPERETTE OD PRN; +KETOROLAC TROMETHAMINE 0.45% 4 DROP/0.4 ML DROPERETTE OS PRN; -LIDOCAINE 4% INJ/PF (40 MG/ML) 5 ML AMPUL OD PRN; +LIDOCAINE 4% INJ/PF (40 MG/ML) 5 ML AMPUL OS PRN
[2018-01-18] MEDS ORDERED: MIDAZOLAM 2 MG/2 ML INJ ONE (06:55)
[2018-01-18] MEDS: CYCLOPENTOLATE 0.2%/PHENYLEPHRINE 1% OPH SOLN 2 ML OS PRN ×3 (06:57→07:17)
[2018-01-18] MEDS: BESIFLOXACIN HCL 0.6% OPH SUSP 5 ML BOTTLE OS PRN ×4 (06:57→08:01)
[2018-01-18] MEDS: TROPICAMIDE 1% OPH SOLN 3 ML OS PRN ×3 (06:57→07:17)
[2018-01-18] MEDS: TETRACAINE HCL 0.5% OPH SOLN 0.6 ML DROPERETTE OS PRN ×2 (06:58→07:17)
[2018-01-18] MEDS ORDERED: EPINEPHRINE INJ/PF 1 MG/1 ML AMPULE ONE (07:17)
[2018-01-18] MEDS: CHONDR SU A NA/HYALUR INTRAOC KIT (SURGICARE) ONE ×2 (07:47)
[2018-01-18] MEDS: EPINEPHRINE INJ/PF 1 MG/1 ML AMPULE ONE ×2 (07:47)
[2018-01-18] MEDS: LIDOCAINE 1%/PHENYLEPHRINE 1.5% 1 ML VIAL ONE ×2 (07:51)
--- NOTE | 2018-01-18 10:01 | [facility] DISCHARGE SUMMARY E ---
[facility] Discharge Summary NAME: CHON LOWE AGE: 82Y ADMITTED: 01/18/2018 DISCHARGED: FINAL DIAGNOSIS: CATARACT, LEFT EYE. HOSPITAL COURSE: The patient is an 82-year-old gentleman who underwent uneventful cataract extraction with intraocular lens implant, left eye on 01/18/2018. He will be discharged to home. He is instructed to resume preoperative medications, take Tylenol as needed for discomfort, to keep his eye shielded, to use Vigamox, PROLENSA and Durezol at 3 p.m. and 8 p.m., and to follow up in my office in 1 day. DICTATING PHYSICIAN: BRYAN MAYORGA M.D. [id number] PHY#: [id number] ID: [id number] JOB#: [id number] ACCT: [id number] cc:BRYAN MAYORGA M.D. >
--- NOTE | 2018-01-18 10:01 | [facility] OPERATIVE REPORT E ---
[facility] Operative Report NAME: CHON LOWE AGE: 82Y DATE OF SURGERY: 01/18/2018 ROOM: PREOPERATIVE DIAGNOSIS: CATARACT, LEFT EYE. POSTOPERATIVE DIAGNOSIS: CATARACT, LEFT EYE. PROCEDURE PERFORMED: PHACOEMULSIFICATION WITH POSTERIOR CHAMBER INTRAOCULAR LENS, LEFT EYE. SURGEON: BRYAN MAYORGA MD ANESTHESIA: TOPICAL WITH MAC. INDICATIONS FOR SURGERY: Difficulty seeing T.V. and imbalance after cataract surgery in the right eye. PROCEDURE: The patient was brought to the Operating Room and placed on the operative table. Following tetracaine drops, topical anesthesia was administered. This consisted of instrument wipe pledgets soaked in a solution of 4% Xylocaine mixed with 0.75% Marcaine in a 1:2 ratio. A 2 x 1 cm pledget was placed in the superior fornix. A 1 x 1 cm pledget was placed in the inferior fornix. The eye was patched shut for 5 minutes. The patch was removed. The eye was sterilely prepped and draped in the usual manner. Lid speculum was placed in the eye. The pledgets were removed. 4-0 black silk sutures were placed around the superior and the inferior rectus muscles to be used as traction. A conjunctival peritomy was made at the 10 o'clock position. Hemostasis was obtained with bipolar cautery. A posterior limbal groove was created using a crescent knife and dissected anteriorly towards the cornea. A sharp point blade was used to create a paracentesis site at the 2 o'clock position. A 2.4 mm keratome was used to enter the anterior chamber through the groove. Viscoelastic was injected into the anterior chamber. An anterior capsulotomy was performed using Utrata forceps in a capsulorrhexis fashion. Hydrodissection and hydrodelineation were performed. Phacoemulsification was performed in eprszc-[id number] technique. A total of 53 seconds phaco time was used. Following this, the I/A unit was used to remove residual cortex. Viscoelastic was injected into the capsular bag. Intraocular lens model SN60WF, 21.5 diopters, serial number [id number] was placed in the capsular bag. The I/A unit was used to remove residual viscoelastic. The wound was seen to be watertight under high and low pressure, and no sutures were placed. The intraocular lens was well centered. The pressure was adjusted in the eye to normal pressure. The 4-0 black silk sutures and lid speculum were removed. The eye was shielded after Besivance drops were placed. The patient tolerated the procedure well and was sent to the Recovery Room in good condition. DICTATING PHYSICIAN: BRYAN MAYORGA M.D. DICTATING PHYSICIAN: BRYAN MAYORGA M.D. [id number] PHY#: [id number] ID: [id number] JOB#: [id number] ACCT: [id number] cc:BRYAN MAYORGA M.D. >
== END 2018-01-18 08:34 | disposition home or self-care (01) ==
LOC: SC 06:36
PROVIDERS: ATTEND Ophthalmology
DX: H25.812 Combined forms of age-related cataract, left eye (principal); Z96.1 Presence of intraocular lens; I10 Essential (primary) hypertension; E11.9 Type 2 diabetes mellitus without complications; I48.91 Unspecified atrial fibrillation; Z86.73 Personal history of transient ischemic attack (TIA), and cerebral infarction without residual deficits; Z79.4 Long term (current) use of insulin; Z79.82 Long term (current) use of aspirin; Z79.899 Other long term (current) drug therapy; Z79.02 Long term (current) use of antithrombotics/antiplatelets
CPT/HCPCS: 66984; 82962; V2632; J2250; J3490 ×3; A9270; J0171; J2370; 142

== ENCOUNTER 2019-07-02 16:09 | Emergency (ER) | payer MEDICARE ==
--- NOTE | 2019-07-02 16:29 | ER Document Report ---
ED Medical Screen (RME) - General Chief Complaint: Leg Swelling Stated Complaint: LEG SWELLING Time Seen by Provider: 07/02/19 16:21 Primary Care Provider: DONIS STINSON MD [Primary Care Provider] - Follow up as needed Mode of Arrival: Wheelchair Information source: Patient Notes: This 84-year-old male with history of diabetes presents emergency department with reports of falling 2 days ago and hurting his ankle. Family noticed his left lower leg is now erythemic and warm. Also reports he fell approximately 1 week ago and hit his head. No change in LOC. Family reports patient is eating drinking voiding bowel movement as normal. I have greeted and performed a rapid initial assessment of this patient. A comprehensive ED assessment and evaluation of the patient, analysis of test results and completion of the medical decision making process will be conducted by additional ED providers. TRAVEL OUTSIDE OF THE [place] IN LAST 30 DAYS: No - Related Data Allergies/Adverse Reactions: No Known Allergies Allergy (Verified 07/02/19 16:18) Past Medical History - Past Medical History Cardiac Medical History: Reports: Hx Atrial Fibrillation - heart irregularity but not sure if actual A. fib, Hx Coronary Artery Disease, Hx Hypercholesterolemia, Hx Hypertension Denies: Hx Heart Attack Pulmonary Medical History: Denies: Hx Asthma, Hx COPD Neurological Medical History: Reports: Hx Cerebrovascular Accident - 20 YEARS AGO,[employer]. Denies: Hx Seizures Endocrine Medical History: Reports: Hx Diabetes Mellitus Type 1, Hx Diabetes Mellitus Type 2 Renal/ Medical History: Reports: Hx Benign Prostatic Hyperplasia, Hx Renal Insufficiency. Denies: Hx Peritoneal Dialysis GI Medical History: Denies: Hx Hepatitis, Hx Hiatal Hernia, Hx Ulcer Musculoskeltal Medical History: Reports Hx Arthritis Psychiatric Medical History: Denies: Hx Dementia Infectious Medical History: Denies: Hx Hepatitis Past Surgical History: Reports: Hx Carotid Endarterectomy, Hx Tonsillectomy, Hx Vascular Surgery - carotid artery. Denies: Hx Open Heart Surgery, Hx Pacemaker - Immunizations Immunizations up to date: Yes Hx Diphtheria, Pertussis, Tetanus Vaccination: Yes Physical Exam - Vital signs Vitals: Temp Pulse Resp BP Pulse Ox 98 F 67 14 134/64 H 97 07/02/19 16:11 07/02/19 16:11 07/02/19 16:11 07/02/19 16:11 07/02/19 16:11 Course - Vital Signs Vital signs: Temp Pulse Resp BP Pulse Ox 98 F 67 14 134/64 H 97 07/02/19 16:11 07/02/19 16:11 07/02/19 16:11 07/02/19 16:11 07/02/19 16:11 Doctor's Discharge - Discharge Referrals: DONIS STINSON MD [Primary Care Provider] - Follow up as needed
--- NOTE | 2019-07-02 17:08 | RADIOLOGY REPORT (SQ) ---
EXAM DESCRIPTION: CT HEAD WITHOUT COMPLETED DATE/TIME: 07/02/2019 4:56 pm REASON FOR STUDY: fall hit head COMPARISON: 04/02/2014 TECHNIQUE: Axial images acquired through the brain without intravenous contrast. Images reviewed wi th bone, brain and subdural windows. Additional sagittal and coronal reconstructions were generated. Images stored on PACS. All CT scanners at this facility use dose modulation, iterative reconstruction, and/or weight based d osing when appropriate to reduce radiation dose to as low as reasonably achievable (ALARA). [facility]: Dose Right [facility]: CareDose [facility]: Dose Right [facility]: Teradose 4D [facility]: Smart App[employer] RADIATION DOSE: CT Rad equipment meets quality standard of care and radiation dose reduction techniq ues were employed. CTDIvol: 53.2 mGy. DLP: 1017 mGy-cm. mGy. LIMITATIONS: None. FINDINGS: VENTRICLES: Prominent. CEREBRUM: No masses. No hemorrhage. No midline shift. Areas of low density in the white matter mos t likely due to chronic micro-vascular ischemic change. No evidence for acute infarction. CEREBELLUM: No masses. No hemorrhage. No alteration of density. No evidence for acute infarction. EXTRAAXIAL SPACES: Mild age-related involutional change. No fluid collections. No masses. ORBITS AND GLOBE: No intra- or extraconal masses. Normal contour of globe without masses. CALVARIUM: No fracture. PARANASAL SINUSES: No fluid or mucosal thickening. SOFT TISSUES: No mass or hematoma. OTHER: No other significant finding. IMPRESSION: MILD CHRONIC CHANGES OF ATROPHY AND MICROVASCULAR ISCHEMIA. NO ACUTE PROCESS. EVIDENCE OF ACUTE STROKE: NO. TECHNICAL DOCUMENTATION: JOB ID: [id number] Quality ID # [id number]: Final reports with documentation of one or more dose reduction techniques (e.g., Au tomated exposure control, adjustment of the mA and/or kV according to patient size, use of iterative reconstruction technique) 2010 [employer]- All Rights Reserved Reading location - IP/workstation name: [email or web address]
--- NOTE | 2019-07-02 17:10 | RADIOLOGY REPORT (SQ) ---
EXAM DESCRIPTION: CT CERVICAL SPINE WITHOUT COMPLETED DATE/TIME: 07/02/2019 4:56 pm REASON FOR STUDY: fall hit head COMPARISON: None. TECHNIQUE: Axial images acquired through the cervical spine without intravenous contrast. Images re viewed with lung, soft tissue and bone windows. Reconstructed coronal and sagittal MPR images review ed. Images stored on PACS. All CT scanners at this facility use dose modulation, iterative reconstruction, and/or weight based d osing when appropriate to reduce radiation dose to as low as reasonably achievable (ALARA). [facility]: Dose Right [facility]: CareDose [facility]: Dose Right [facility]: Teradose 4D [facility]: Smart Technologies RADIATION DOSE: CT Rad equipment meets quality standard of care and radiation dose reduction techniq ues were employed. CTDIvol: 19.6 mGy. DLP: 411 mGy-cm. mGy. LIMITATIONS: None. FINDINGS: ALIGNMENT: Anatomic. MINERALIZATION: Normal. VERTEBRAL BODIES: Minimal anterior wedge compression fracture of T1 age indeterminate. DISCS: Multilevel disc space narrowing with osteophytes. FACETS, LATERAL MASSES, POSTERIOR ELEMENTS: Facet arthropathy. No fractures. No dislocation. No ac [place] findings. HARDWARE: None in the spine. VISUALIZED RIBS: No fractures. LUNG APICES AND SOFT TISSUES: No significant or acute findings. OTHER: No other significant finding. IMPRESSION: Minimal anterior wedge compression fracture T1, age indeterminate. TECHNICAL DOCUMENTATION: JOB ID: [id number] Quality ID # [id number]: Final reports with documentation of one or more dose reduction techniques (e.g., Au tomated exposure control, adjustment of the mA and/or kV according to patient size, use of iterative reconstruction technique) 2010 [employer]- All Rights Reserved Reading location - IP/workstation name: [email or web address]
--- NOTE | 2019-07-02 17:15 | RADIOLOGY REPORT (SQ) ---
EXAM DESCRIPTION: ANKLE LEFT COMPLETE COMPLETED DATE/TIME: 07/02/2019 5:04 pm REASON FOR STUDY: fall COMPARISON: None. NUMBER OF VIEWS: Three views. TECHNIQUE: AP, lateral, and oblique radiographic images acquired of the left ankle. LIMITATIONS: None. FINDINGS: MINERALIZATION: Normal. BONES: 6 mm round lucency at the lateral talar dome. No displaced fracture. No worrisome bone lesio ns. Moderate size Achilles and plantar calcaneal enthesophytes. JOINTS: No effusions. SOFT TISSUES: Moderate lateral ankle soft tissue swelling. No foreign body. Minimal vascular calcifi cations. OTHER: No other significant finding. IMPRESSION: Moderate lateral ankle soft tissue swelling without acute displaced fracture. Age indet erminate 6 mm lateral talar dome osteochondral injury. TECHNICAL DOCUMENTATION: JOB ID: [id number] [employer]- All Rights Reserved Reading location - IP/workstation name: [email or web address]
[2019-07-02 18:02] LABS: ABSOLUTE EOSINOPHILS # (AUTO) 0.3 10^3/uL (0.0-0.6); ABSOLUTE LYMPHOCYTES (AUTO) 0.7 10^3/uL (0.5-4.7); ABSOLUTE MONOCYTES (AUTO) 0.5 10^3/uL (0.1-1.4); ABSOLUTE NEUT (AUTO) 12.6 10^3/uL (1.7-8.2); BASOPHILS % (AUTO) 0.3 % (0-2); HEMATOCRIT 33.8 % (37.9-51.0); HEMOGLOBIN 11.4 g/dL (13.5-17.0); LYMPHOCYTES % (AUTO) 5.1 % (13-45); MEAN CORPUSCULAR HEMOGLOBIN 30.6 pg (27.0-33.4); MEAN CORPUSCULAR HGB CONC 33.8 g/dL (32.0-36.0); MEAN CORPUSCULAR VOLUME 91 fl (80-97); MONOCYTES % (AUTO) 3.6 % (3-13); PLATELET COUNT 308 10^3/uL (150-450); RED BLOOD COUNT 3.73 10^6/uL (4.35-5.55); RED CELL DISTRIBUTION WIDTH 14.4 % (11.5-14.0); TOTAL CELLS COUNTED % (AUTO) 100 %; WHITE BLOOD COUNT 14.1 10^3/uL (4.0-10.5)
--- NOTE | 2019-07-02 18:16 | ER Document Report ---
ED General - General Chief Complaint: Ankle Swelling Stated Complaint: LEG SWELLING Time Seen by Provider: 07/02/19 16:21 Primary Care Provider: DONIS STINSON MD [Primary Care Provider] - Follow up as needed Mode of Arrival: Wheelchair Notes: 84-year-old male arrives with daughter and son-in-law after he fell 2 weeks ago and has been ambulating using his walker very slowly. He began to have swelling of his left lower ankle and leg and the right anterior thigh this week. Patient denies any pain in his legs or in his neck or head. CT of head and neck were done today revealing a indeterminate age thoracic compression fracture. There is no pain to the back of his neck. X-rays of his left leg ankle reveal soft tissue swelling but no malleoli fractures there is some questi on of ostial injury to the talus. Because of cellulitis of his left leg and right anterior thigh we will use antibiotics IV and place him on p.o. antibiotics and follow-up with orthopedics tomorrow or Wednesday. TRAVEL OUTSIDE OF THE [place] IN LAST 30 DAYS: No - HPI Onset: Last week - Related Data Allergies/Adverse Reactions: No Known Allergies Allergy (Verified 07/02/19 16:18) Past Medical History - General Information source: Patient, Relative - Daughter Alice and son-in-law Sammy as historians Cannot obtain history due to: Dementia, Other - Patient does speak and says small jokes but much of history is from daughter and son-in-law - Social History Smoking Status: Former Smoker Cigarette use (# per day): No Chew tobacco use (# tins/day): No Smoking Education Provided: No Frequency of alcohol use: None Drug Abuse: None Lives with: Family Family History: Reviewed & Not Pertinent, CAD, DM, Hypertension, Malignancy Patient has suicidal ideation: No Patient has homicidal ideation: No - Past Medical History Cardiac Medical History: Reports: Hx Atrial Fibrillation - heart irregularity b ut not sure if actual A. fib, Hx Coronary Artery Disease, Hx Hypercholesterolemia, Hx Hypertension Denies: Hx Heart Attack Pulmonary Medical History: Denies: Hx Asthma, Hx COPD Neurological Medical History: Reports: Hx Cerebrovascular Accident - 20 YEARS AGO,[employer]. Denies: Hx Seizures Endocrine Medical History: Reports: Hx Diabetes Mellitus Type 1, Hx Diabetes Mellitus Type 2 Renal/ Medical History: Reports: Hx Benign Prostatic Hyperplasia, Hx Renal Insufficiency. Denies: Hx Peritoneal Dialysis GI Medical History: Denies: Hx Hepatitis, Hx Hiatal Hernia, Hx Ulcer Musculoskeletal Medical History: Reports Hx Arthritis Psychiatric Medical History: Denies: Hx Dementia Infectious Medical History: Denies: Hx Hepatitis Past Surgical History: Reports: Hx Cardiac Catheterization, Hx Carotid Endarterectomy, Hx Tonsillectomy, Hx Vascular Surgery - carotid artery. Denies: Hx Open Heart Surgery, Hx Pacemaker - Immunizations Immunizations up to date: Yes Hx Diphtheria, Pertussis, Tetanus Vaccination: Yes Hx Pneumococcal Vaccination: 05/31/12 Review of Systems - Review of Systems Constitutional: See HPI, Malaise, Weakness EENT: No symptoms reported Cardiovascular: No symptoms reported Respiratory: No symptoms reported Gastrointestinal: No symptoms reported Genitourinary: No symptoms reported Male Genitourinary: No symptoms reported Musculoskeletal: See HPI, Joint pain, Joint swelling, Leg swelling, Ankle swelling - left sided Skin: See HPI, Other - Patient has buttocks decubitus ulcer stage I; family report the lesions were bleeding while he was on Plavix and therefore last summer this was taken off of his medicine list. Hematologic/Lymphatic: No symptoms reported Neurological/Psychological: No symptoms reported Physical Exam - Vital signs Vitals: Temp Pulse Resp BP Pulse Ox 98 F 67 14 134/64 H 97 07/02/19 16:11 07/02/19 16:11 07/02/19 16:11 07/02/19 16:11 07/02/19 16:11 Interpretation: Hypertensive - HEENT Head: Normocephalic Eyes: Normal Conjunctiva: Normal Cornea: Normal Extraocular movements intact: Yes Eyelashes: Normal Pupils: PERRL - Respiratory Respiratory status: No respiratory distress Breath sounds: Normal Chest palpation: Normal - Cardiovascular Rhythm: Regular Heart sounds: Normal auscultation Murmur: No Friction rub: No Amaury's crunch: No - Abdominal Inspection: Normal Distension: No distension Bowel sounds: Normal Tenderness: Nontender - Back Back: Normal - Extremities General upper extremity: Normal inspection General lower extremity: Edema, Other - LLE erythema diffuse and right thigh cellulitis 5 cm diameter Course - Vital Signs Vital signs: Temp Pulse Resp BP Pulse Ox 97.5 F 67 25 H 118/52 L 99 07/02/19 18:37 07/02/19 16:11 07/02/19 17:53 07/02/19 17:53 07/02/19 17:53 - Laboratory Result Diagrams: 07/02/19 17:48 07/02/19 17:48 Laboratory results interpreted by me: 07/02/19 07/02/19 07/02/19 17:48 17:48 17:48 WBC 14.1 H RBC 3.73 L Hgb 11.4 L Hct 33.8 L RDW 14.4 H Lymph % (Auto) 5.1 L Absolute Neuts (auto) 12.6 H Seg Neutrophils % 89.0 H Chloride 96 L BUN 25 H Glucose 119 H Magnesium 2.4 H Albumin 3.4 L Critical Care Note - Critical Care Note Total time excluding time spent on procedures (mins): 90 Comments: I advised patient to follow-up with orthopedics tomorrow and to take medications as directed. I advised son in law and daughter and patient of the laboratory and x-ray findings and CT findings Discharge - Discharge Clinical Impression: Cellulitis and abscess of left leg, Osteochondral talar dome lesion Condition: Good Disposition: HOME, SELF-CARE Additional Instructions: follow with orthopedics and family doctor in 1-2 days and apply Caladryl to affected skin twice daily Prescriptions: Doxycycline Monohydrate 100 mg PO BID #20 capsule Levofloxacin [Levaquin 750 mg Tablet] 500 mg PO DAILY #10 tablet Referrals: DONIS STINSON MD [Primary Care Provider] - Follow up as needed
[2019-07-02 18:17] LABS: ALBUMIN 3.4 g/dL (3.5-5.0); ALKALINE PHOSPHATASE 96 U/L (38-126); ANION GAP 12 (5-19); ASPARTATE AMINO TRANSFERASE 21 U/L (17-59); BILIRUBIN,DIRECT 0.4 mg/dL (0.0-0.4); BILIRUBIN,TOTAL 0.5 mg/dL (0.2-1.3); BLOOD UREA NITROGEN 25 mg/dL (7-20); CARBON DIOXIDE 30 mmol/L (22-30); CHLORIDE 96 mmol/L (98-107); GLUCOSE 119 mg/dL (75-110); POTASSIUM 3.7 mmol/L (3.6-5.0); TOTAL PROTEIN 6.5 g/dL (6.3-8.2)
[2019-07-02 18:24] LABS: INTERNATIONAL RATION (INR) 1.11; PROTHROMBIN TIME 14.3 SEC (11.4-15.4)
[2019-07-02 18:25] LABS: PARTIAL THROMBOPLASTIN TIME 27.8 SEC (23.5-35.8)
[2019-07-02] MEDS ORDERED: CEFTRIAXONE INJ 1000 MG VIAL IV ONE (18:56)
[2019-07-02] MEDS ORDERED: LEVOFLOXACIN 750 MG/D5W RTU 750 MG/150 ML RTUPB IV ONE (18:56)
[2019-07-02] MEDS ORDERED: CEFTRIAXONE INJ 1000 MG VIAL ONE (21:02)
[2019-07-02 22:52] VITALS: BP 129/56
== END 2019-07-02 22:52 | disposition home or self-care (01) ==
LOC: ER 16:09
DX: L03.116 Cellulitis of left lower limb (principal); S99.812A Other specified injuries of left ankle, initial encounter; W18.30XA Fall on same level, unspecified, initial encounter; R53.1 Weakness; L89.301 Pressure ulcer of unspecified buttock, stage 1; F03.90 Unspecified dementia, unspecified severity, without behavioral disturbance, psychotic disturbance, mood disturbance, and anxiety; Z86.73 Personal history of transient ischemic attack (TIA), and cerebral infarction without residual deficits; E11.9 Type 2 diabetes mellitus without complications
CPT/HCPCS: 99285; 96365; 96366; 96368; 36415; 87040; 83735; 85025; 85610; 85730; 80053; 73610; 70450; 72125; J0696; J1956